=== PATIENT | female | born 1975 | race Caucasian/White ===

== ENCOUNTER 2017-06-21 15:31 | Emergency (ER) | payer OTHER ==
[2017-06-21 15:39] VITALS: BP 129/76; PULSE 100; TEMP 99; BMI 30.2
[2017-06-21] MEDS ORDERED: ALBUTEROL SO4 2.5/IPRATROPIUM 0.5 INH SOL 3 ML VIAL.NEB. NEB ONE ×2 (16:04→16:07)
--- NOTE | 2017-06-21 16:15 | PDOC ---
History of Present Illness - General Chief Complaint: Respiratory Stated Complaint: SOB, RIBS PAIN Time Seen by Provider: 06/21/17 15:48 History Source: Patient Exam Limitations: No Limitations - History of Present Illness Initial Comments: 06/21/17 16:09 Patient is a 41-year-old female, history of asthma, does not take any medications at home has not had exacerbation in many years. Presents with cough , wheezing, bilateral rib pain for three days. Cough is not productive. No fever, no chest pain. Allergies: PCN Medications: None Family History: Non-contributory Social History: Denies smoking, alcohol use, or IVDU Review of Systems GENERAL/CONSTITUTIONAL: No fever or chills. No weakness. No weight change. HEAD, EYES, EARS, NOSE AND THROAT: No change in vision. No ear pain or discharge. No sore throat. CARDIOVASCULAR: No chest pain or shortness of breath. RESPIRATORY: Cough, wheezing, rib pain coughing GASTROINTESTINAL: No nausea, vomiting, diarrhea or constipation. No rectal bleeding. GENITOURINARY: No dysuria, frequency, or change in urination. MUSCULOSKELETAL: No joint or muscle swelling or pain. No neck or back pain. SKIN : No rash or easy bruising. Physical Exam: GENERAL: The patient is awake, alert, and fully oriented, in no acute distress. EYES: Pupils equal, round and reactive to light, extraocular movements intact, sclera anicteric, conjunctiva clear. ENT: Ears normal, nares patent, oropharynx clear without exudates. Moist mucous membranes. No uvula deviation NECK: Normal range of motion, supple without lymphadenopathy, JVD, or masses. LUNGS: Breath sounds decreased at right base, clear to auscultation bilaterally. No wheezes, and no crackles. HEART: Regular rate and rhythm, normal S1 and S2 without murmur, rub or gallop. ABDOMEN: Soft, nontender, normoactive bowel sounds. No guarding, no rebound. No masses. No bruising or abrasions MUSCULOSKELETAL: Normal range of motion, no edema. No clubbing or cyanosis. No cords, erythema, or tenderness. No CVA Tenderness with fist. NEUROLOGICAL: Cranial nerves II through XII grossly intact. Normal speech, normal gait. SKIN: Warm, Dry, normal turgor, no rashes or lesions noted. Past History - Past Medical History Allergies/Adverse Reactions: Allergies Allergy/AdvReac Type Severity Reaction Status Date / Time Penicillins Allergy Swelling Verified 06/21/17 15:39 Home Medications: Ambulatory Orders Albuterol Sulfate Inhaler - [Ventolin HFA Inhaler -] 1 - 2 inh PO Q4H #1 inhaler 06/21/17 Azithromycin [Zithromax 250mg Tablets -] 250 mg PO UTDICT #6 tab 06/21/17 Asthma: Yes - Suicide/Smoking/Psychosocial Hx Smoking History: Current some day smoker Number of Cigarettes Smoked Daily: 4 Information on smoking cessation initiated: Yes 'Breaking Loose' booklet given: 06/21/17 Hx Alcohol Use: No Drug/Substance Use Hx: No Substance Use Type: None *Physical Exam - Vital Signs Last Vital Signs Temp Pulse Resp BP Pulse Ox 99.0 F 100 H 20 129/76 98 06/21/17 15:37 06/21/17 15:37 06/21/17 15:37 06/21/17 15:37 06/21/17 15:37 ED Treatment Course - RADIOLOGY Radiology Studies Ordered: Category Date Time Status CHEST PA & LAT [RAD] Stat Radiology 06/21/17 16:02 Ordered - Medications Given in the ED: ED Medications Discontinued Medications Generic Name Dose Route Start Last Admin Trade Name Freq PRN Reason Stop Dose Admin Albuterol/Ipratropium 1 amp 06/21/17 16:04 06/21/17 16:08 Duoneb - NEB 06/21/17 16:05 1 amp ONCE ONE Administration Medical Decision Making - Medical Decision Making 06/21/17 16:15 A/P: Patient here for evaluation of cough with bilateral rib pain only with coughing, there is no pain on palpation over musculature of chest, no chest pain , no fever. Patient decreased breath sounds to right Base. Plan: Combivent Urine Chest x-ray PA lateral 06/21/17 17:53 X-ray wet read is negative for acute cardiopulmonary disease. Patient with bronchitis Will discharge patient home on azithromycin and Motrin for pain, albuterol as needed I discussed the physical exam findings, ancillary test results and final diagnoses with the patient. I answered all of the patient's questions. The patient was satisfied with the care received and felt comfortable with the discharge plan and treatment plan. The patient will call to arrange follow-up and will return to the Emergency Department with any new, persistent or worsening symptoms. 06/21/17 17:59 *DC/Admit/Observation/Transfer Diagnosis at time of Disposition: Bronchitis - Discharge Dispostion Disposition: HOME Condition at time of disposition: Good Admit: No - Prescriptions Prescriptions: Albuterol Sulfate Inhaler - [Ventolin HFA Inhaler -] 1 - 2 inh PO Q4H #1 inhaler Azithromycin [Zithromax 250mg Tablets -] 250 mg PO UTDICT #6 tab - Patient Instructions Printed Discharge Instructions: DI for Acute Bronchitis Additional Instructions: Keep head of bed elevated 45 when sleeping Treatments every 4 hours as needed Cool air humidifier Antibiotics as ordered until completed Motrin for fever or pain Followup in the primary care doctor's office in 2 days for evaluation. If any respiratory distress, increased cough, inability to drink, increased wheezing please return immediately to emergency department.
== END 2017-06-21 18:01 | disposition home or self-care (01) ==
LOC: JERFT 15:31
PROC: 3E0F7GC Introduction of Other Therapeutic Substance into Respiratory Tract, Via Natural or Artificial Opening (ICD-10-PCS; principal; 2017-06-21)
DX: J40 Bronchitis, not specified as acute or chronic (principal)
CPT/HCPCS: 71020-TC; 84703; 94640; 99281-25

== ENCOUNTER 2018-12-25 03:02 | Inpatient (IN) | payer OTHER ==
[2018-12-25 03:16] VITALS: BMI 32.5
[2018-12-25] MEDS ORDERED: SODIUM CHLORIDE 1,000 ML IV STA (03:30)
[2018-12-25] MEDS ORDERED: ONDANSETRON 4 MG/2 ML VIAL IVPUSH ONE (03:30)
[2018-12-25] MEDS ORDERED: morphine SULFATE 4 MG/ML VIAL ONE (03:37)
[2018-12-25 04:19] LABS: BASO % 0.2 % (0-2.0); EOS % 0.6 % (0-4.5); HEMATOCRIT 31.9 % (32.4-45.2); MCH 33.3 pg (25.7-33.7); MCHC 34.4 g/dl (32.0-36.0); MEAN CELL VOLUME 96.6 fl (80-96); MEAN PLT VOLUME 7.6 fl (7.5-11.1); MONO % 5.2 % (3.8-10.2); PLATELET COUNT 247 K/MM3 (134-434); RDW 13.8 % (11.6-15.6); WHITE BLOOD COUNT 6.4 K/mm3 (4.0-10.0)
[2018-12-25 04:25] LABS: EPI CELLS 2.5 /HPF (0-5); URINE APPEARANCE CLEAR; URINE BACTERIA 86.4 /hpf (NEGATIVE); URINE BILIRUBIN 1+ (NEGATIVE); URINE CASTS 4 /hpf (0-8); URINE COLOR DK YELLOW; URINE GLUCOSE (UA) NEGATIVE (NEGATIVE); URINE KETONE NEGATIVE (NEGATIVE); URINE LEUK ESTERASE TRACE (NEGATIVE); URINE NITRITE POSITIVE (NEGATIVE); URINE PROTEIN NEGATIVE (NEGATIVE); URINE RBC 50 /hpf (0-4); URINE UROBILINOGEN 4.0 E.U/dl mg/dL (0.2-1.0); URINE WBC 4 /hpf (0-5)
--- NOTE | 2018-12-25 04:38 | PDOC ---
Attending Attestation - Resident Resident Name: Scott Park - ED Attending Attestation I have performed the following: I have examined & evaluated the patient, The case was reviewed & discussed with the resident, I agree w/resident's findings & plan, Exceptions are as noted - HPI HPI: 12/25/18 07:01 43F pmh of cholelithiasis scheduled for out patient f/u with surgery in December. Here with sudden onset RUQ px a/w n/v - Physicial Exam PE: 12/25/18 07:01 Agree with exam as documented by resident +TTP RUQ, no guarding, no rebound Skin color baseline per patient's daughter at bedside No scleral icterus - Medical Decision Making 12/25/18 07:02 Concern for cholecystitis, choledoco, less likely cholangitis bili 3.4, slight elevation in lfts CT confirming cholelithiasis Admit for eval ERCP
[2018-12-25 04:46] LABS: ALK PHOS 85 U/L (45-117); ANION GAP 9 MMOL/L (8-16); BILIRUBIN,TOTAL 3.4 mg/dL (0.2-1); BLOOD UREA NITROGEN 15 mg/dL (7-18); CALCIUM 8.5 mg/dL (8.5-10.1); CHLORIDE 107 mmol/L (98-107); CO2 25 mmol/L (21-32); CREATININE 0.8 mg/dL (0.55-1.3); GLUCOSE,RANDOM 136 mg/dL (74-106); LIPASE 127 U/L (73-393); POTASSIUM 3.6 mmol/L (3.5-5.1); SGOT/AST 136 U/L (15-37); SGPT/ALT 92 U/L (13-61); SODIUM 141 mmol/L (136-145); TOT PROT 7.4 g/dl (6.4-8.2)
--- NOTE | 2018-12-25 04:57 | PDOC ---
History of Present Illness - General Chief Complaint: Pain, Acute Stated Complaint: ABD PAIN Time Seen by Provider: 12/25/18 03:13 History Source: Patient Exam Limitations: No Limitations - History of Present Illness Initial Comments: 12/25/18 04:52 Patient is a 43F with history of cholelithiasis here today complaining of sudden onset RUQ pain. Patient states that she was previously diagnosed with gallstones in her home state of [place] and was due for an outpatient surgical eval in early december. Endorses vomiting and nausea, denies fevers and chills. Denies vaginal pain. LMP current. Denies diarrhea and constipation. No prior surgeries. Past History - Past Medical History Allergies/Adverse Reactions: Allergies Allergy/AdvReac Type Severity Reaction Status Date / Time Penicillins Allergy Swelling Verified 12/25/18 03:15 Home Medications: Ambulatory Orders Albuterol Sulfate Inhaler - [Ventolin HFA Inhaler -] 1 - 2 inh PO Q4H #1 inhaler 06/21/17 Asthma: Yes COPD: No - Reproductive History Is Patient Now?: No Therapeutic (s) & number: No - Immunization History Immunization Up to Date: Yes - Suicide/Smoking/Psychosocial Hx Smoking History: Never smoked Have you smoked in the past 12 months: No Number of Cigarettes Smoked Daily: 4 Information on smoking cessation initiated: No 'Breaking Loose' booklet given: 06/21/17 Hx Alcohol Use: No Drug/Substance Use Hx: No Substance Use Type: None Review of Systems - Review of Systems Able to Perform ROS?: Yes Comments:: 12/25/18 04:53 GENERAL/CONSTITUTIONAL: No fever or chills. No weakness. HEAD, EYES, EARS, NOSE AND THROAT: No change in vision. No ear pain or discharge. No sore throat. CARDIOVASCULAR: No chest pain or shortness of breath RESPIRATORY: No cough, wheezing, or hemoptysis. GASTROINTESTINAL: +nausea, +vomiting, no diarrhea or constipation. GENITOURINARY: No dysuria, frequency, or change in urination. MUSCULOSKELETAL: No joint or muscle swelling or pain. No neck or back pain. SKIN: No rash NEUROLOGIC: No headache, vertigo, loss of consciousness, or change in strength/ sensation. ALLERGIC/IMMUNOLOGIC: No hives or skin allergy. *Physical Exam - Vital Signs Last Vital Signs Temp Pulse Resp BP Pulse Ox 97.6 F 69 20 112/63 97 12/25/18 03:15 12/25/18 03:15 12/25/18 03:15 12/25/18 03:15 12/25/18 03:15 - Physical Exam Comments: 12/25/18 04:55 GENERAL: Awake, alert, and fully oriented, in no acute distress HEAD: No signs of trauma, normocephalic, atraumatic EYES: PERRLA, EOMI, sclera anicteric, conjunctiva clear ENT: Auricles normal inspection, hearing grossly normal, nares patent, oropharynx clear without exudates. Moist mucosa NECK: Normal ROM, supple, no lymphadenopathy, JVD, or masses LUNGS: No distress, speaks full sentences, clear to auscultation bilaterally HEART: Regular rate and rhythm, normal S1 and S2, no murmurs, rubs or gallops, peripheral pulses normal and equal bilaterally. ABDOMEN: Soft, +RUQ tenderness, no rebound EXTREMITIES: Normal inspection, Normal range of motion, no edema. No clubbing or cyanosis. NEUROLOGICAL: Cranial nerves II through XII grossly intact. Normal speech, no focal sensorimotor deficits SKIN: Warm, Dry, normal turgor, no rashes or lesions noted. ED Treatment Course - LABORATORY CBC & Chemistry Diagram: 12/25/18 03:31 12/25/18 03:31 - ADDITIONAL ORDERS Additional order review: Laboratory Results 12/25/18 12/25/18 03:31 03:31 Sodium 141 Potassium 3.6 Chloride 107 Carbon Dioxide 25 Anion Gap 9 BUN 15 Creatinine 0.8 Creat Clearance w eGFR 79.05 Random Glucose 136 H Calcium 8.5 Total Bilirubin 3.4 H AST 136 H ALT 92 H Alkaline Phosphatase 85 Total Protein 7.4 Albumin 4.0 Lipase 127 Urine HCG, Qual Negative 12/25/18 03:31 RBC 3.30 L MCV 96.6 H MCHC 34.4 RDW 13.8 MPV 7.6 Neutrophils % 83.0 H Lymphocytes % 11.0 Monocytes % 5.2 Eosinophils % 0.6 Basophils % 0.2 - RADIOLOGY Radiology Studies Ordered: Category Date Time Status ABDOMEN CT WITH CONTRAST* [CT] Stat CT Scan 12/25/18 03:42 Ordered - Medications Given in the ED: ED Medications Discontinued Medications Generic Name Dose Route Start Last Admin Trade Name Freq PRN Reason Stop Dose Admin Sodium Chloride 1,000 mls @ 1,000 mls/hr 12/25/18 03:30 12/25/18 03:34 Normal Saline - IV 12/25/18 04:29 1,000 mls/hr ASDIR STA Administration Ondansetron HCl 4 mg 12/25/18 03:30 12/25/18 03:34 Zofran Injection IVPUSH 12/25/18 03:31 4 mg ONCE ONE Administration Medical Decision Making - Medical Decision Making 12/25/18 04:55 Patient is 43F with history of cholelithiasis here today complaining of RUQ pain. Vitals normal and stable. POCUS shows cholethiasis, no gb wall thickening , no pericholecystic fluid, cbd not visualized. Given morphine, zofran, fluids. DDx includes, but is not limited to: cholecystitis, biliary colic, choledocholithiasis. US not available currently, will start with CT scan. 12/25/18 05:13 CBC normal. CMP shows Bili 3.3, mild elevations of AST/ALT, lipase normal. UA nitrite+, preg negative. Presuming diagnosis of choledocholithiasis at this time. PCN allergy, will give levaquin and flagyl for abx coverage. CT pending. 12/25/18 05:41 CT shows cholelithiasis, does not comment on CBD. US ordered. GI paged. Hospitalist paged. 12/25/18 05:46 Case d/w Dr Kendall, case discussed. 12/25/18 06:15 After levaquin completed, rash developed on patient. Given benadryl. No edema in throat or upper airway, lungs clear. Given benadryl. *DC/Admit/Observation/Transfer Diagnosis at time of Disposition: Choledocholithiasis - Discharge Dispostion Condition at time of disposition: Stable Decision to Admit order: Yes - Referrals - Patient Instructions - Post Discharge Activity
--- NOTE | 2018-12-25 07:14 | PDOC ---
*Physical Exam - Vital Signs Last Vital Signs Temp Pulse Resp BP Pulse Ox 97.6 F 98 H 18 124/75 98 12/25/18 03:15 12/25/18 06:33 12/25/18 06:33 12/25/18 06:33 12/25/18 06:33 <Abigail Ramsey - Last Filed: 12/25/18 08:56> - Vital Signs Last Vital Signs Temp Pulse Resp BP Pulse Ox 97.6 F 98 H 18 124/75 98 12/25/18 03:15 12/25/18 06:33 12/25/18 06:33 12/25/18 06:33 12/25/18 06:33 <AnthonyPark - Last Filed: 12/25/18 14:11> ED Treatment Course - LABORATORY CBC & Chemistry Diagram: 12/25/18 03:31 12/25/18 03:31 - ADDITIONAL ORDERS Additional order review: Laboratory Results 12/25/18 12/25/18 12/25/18 03:31 03:31 03:31 Sodium 141 Potassium 3.6 Chloride 107 Carbon Dioxide 25 Anion Gap 9 BUN 15 Creatinine 0.8 Creat Clearance w eGFR 79.05 Random Glucose 136 H Calcium 8.5 Total Bilirubin 3.4 H AST 136 H ALT 92 H Alkaline Phosphatase 85 Total Protein 7.4 Albumin 4.0 Lipase 127 Urine Color Dk yellow Urine Appearance Clear Urine pH 6.0 Ur Specific [place] 1.024 Urine Protein Negative Urine Glucose (UA) Negative Urine Ketones Negative Urine Blood 3+ H Urine Nitrite Positive H Urine Bilirubin 1+ H Urine Urobilinogen 4.0 e.u/dl H Ur Leukocyte Esterase Trace Urine WBC (Auto) 4 Urine RBC (Auto) 50 Urine Casts (Auto) 4 U Epithel Cells (Auto) 2.5 Urine Bacteria (Auto) 86.4 Urine HCG, Qual Negative 12/25/18 03:31 RBC 3.30 L MCV 96.6 H MCHC 34.4 RDW 13.8 MPV 7.6 Neutrophils % 83.0 H Lymphocytes % 11.0 Monocytes % 5.2 Eosinophils % 0.6 Basophils % 0.2 - Medications Given in the ED: ED Medications Discontinued Medications Generic Name Dose Route Start Last Admin Trade Name Freq PRN Reason Stop Dose Admin Diphenhydramine HCl 50 mg 12/25/18 06:15 12/25/18 06:18 Benadryl Injection - IVPUSH 12/25/18 06:16 50 mg ONCE ONE Administration Sodium Chloride 1,000 mls @ 1,000 mls/hr 12/25/18 03:30 12/25/18 03:34 Normal Saline - IV 12/25/18 04:29 1,000 mls/hr ASDIR STA Administration Metronidazole 500 mg in 100 mls @ 100 mls/hr 12/25/18 05:01 12/25/18 05:20 Flagyl 500mg Premixed Ivpb - IVPB 12/25/18 06:00 100 mls/hr ONCE ONE Administration Levofloxacin 750 mg in 150 mls @ 100 mls/hr 12/25/18 05:01 12/25/18 05:45 Levaquin 750 Mg Premixed Ivpb - IVPB 12/25/18 06:30 100 mls/hr ONCE ONE Administration Protocol Ondansetron HCl 4 mg 12/25/18 03:30 12/25/18 03:34 Zofran Injection IVPUSH 12/25/18 03:31 4 mg ONCE ONE Administration <Abigail Ramsey - Last Filed: 12/25/18 08:56> - LABORATORY CBC & Chemistry Diagram: 12/25/18 03:31 12/25/18 03:31 - ADDITIONAL ORDERS Additional order review: Laboratory Results 12/25/18 12/25/18 12/25/18 03:31 03:31 03:31 Sodium 141 Potassium 3.6 Chloride 107 Carbon Dioxide 25 Anion Gap 9 BUN 15 Creatinine 0.8 Creat Clearance w eGFR 79.05 Random Glucose 136 H Calcium 8.5 Total Bilirubin 3.4 H AST 136 H ALT 92 H Alkaline Phosphatase 85 Total Protein 7.4 Albumin 4.0 Lipase 127 Urine Color Dk yellow Urine Appearance Clear Urine pH 6.0 Ur Specific [place] 1.024 Urine Protein Negative Urine Glucose (UA) Negative Urine Ketones Negative Urine Blood 3+ H Urine Nitrite Positive H Urine Bilirubin 1+ H Urine Urobilinogen 4.0 e.u/dl H Ur Leukocyte Esterase Trace Urine WBC (Auto) 4 Urine RBC (Auto) 50 Urine Casts (Auto) 4 U Epithel Cells (Auto) 2.5 Urine Bacteria (Auto) 86.4 Urine HCG, Qual Negative 12/25/18 03:31 RBC 3.30 L MCV 96.6 H MCHC 34.4 RDW 13.8 MPV 7.6 Neutrophils % 83.0 H Lymphocytes % 11.0 Monocytes % 5.2 Eosinophils % 0.6 Basophils % 0.2 - Medications Given in the ED: ED Medications Discontinued Medications Generic Name Dose Route Start Last Admin Trade Name Stephanie PRN Reason Stop Dose Admin Diphenhydramine HCl 50 mg 12/25/18 06:15 12/25/18 06:18 Benadryl Injection - IVPUSH 12/25/18 06:16 50 mg ONCE ONE Administration Sodium Chloride 1,000 mls @ 1,000 mls/hr 12/25/18 03:30 12/25/18 03:34 Normal Saline - IV 12/25/18 04:29 1,000 mls/hr ASDIR STA Administration Metronidazole 500 mg in 100 mls @ 100 mls/hr 12/25/18 05:01 12/25/18 05:20 Flagyl 500mg Premixed Ivpb - IVPB 12/25/18 06:00 100 mls/hr ONCE ONE Administration Levofloxacin 750 mg in 150 mls @ 100 mls/hr 12/25/18 05:01 12/25/18 05:45 Levaquin 750 Mg Premixed Ivpb - IVPB 12/25/18 06:30 100 mls/hr ONCE ONE Administration Protocol Ondansetron HCl 4 mg 12/25/18 03:30 12/25/18 03:34 Zofran Injection IVPUSH 12/25/18 03:31 4 mg ONCE ONE Administration <Park Cruz - Last Filed: 12/25/18 14:11> Medical Decision Making - Medical Decision Making 12/25/18 07:11 Carine Butcher is a 43yo woman with a PMH of cholelithiasis who presented overnight with RUQ pain. ED course notable for - POCUS w/ cholelithiasis, no sign of cholecystitis. - Labs with tbili 3.3, mildly elevated LFTs, normal lipase. - CT not diagnostic, US pending. - Case was discussed with Dr Kendall. - Given levaquin, developed rash. Given benadryl. 12/25/18 08:45 - US completed, reviewed. Multiple gallstones noted. Normal wall thickness, no duct dilation. Radiology read pending - Spoke to Dr Fajardo; pt will be accepted to medicine service for further management 12/25/18 08:58 - US reviewed by radiology; notes multiple non-mobile stones at gallbladder neck Discussed with Dr Ramsey. Park Cruz PGY1 <Park Cruz - Last Filed: 12/25/18 14:11> *DC/Admit/Observation/Transfer - Discharge Dispostion Decision to Admit order: Yes Decision to Admit order Date/Time: 12/25/18 08:56 <Abigail Ramsey - Last Filed: 12/25/18 08:56> - Discharge Dispostion Decision to Admit order: Yes <Park Cruz - Last Filed: 12/25/18 14:11> Diagnosis at time of Disposition: Choledocholithiasis - Discharge Dispostion Condition at time of disposition: Stable
[2018-12-25] MEDS ORDERED: MORPHINE SULFATE 2 MG/ML VIAL IVPUSH PRN (08:45)
--- NOTE | 2018-12-25 08:59 | HP ---
Admitting History and Physical - Admission Chief Complaint: abdominal pain History of Present Illness: 43 yo F with history of gallstones presents with one day history of abdominal pain. She describes intermittent non-radiating 10/10 RUQ pain. Pain lasted approx. 1 min and resolved. This occured several times which prompted trip to ER. No alleviating or aggravating factors. No fever or chills. She has been seen in [place] for similar episodes and was scheduled for Cholecystectomy but was not done. She denies CP, HERNANDEZ, SOB,abdominal pain, nausea or vomiting. In ER CT abdomen was done with contrast and showed distended gallbladder with stones. US of abdomen showed multiple non mobile stones near the neck with no evidence of cholecystitis. Labs in ER showed normal white count. Elevated liver enzymes with AST: 136 ALT: 92 ALP: 85 TB: 3.4 Alb: 4.0. She recieved a dose of Levaquin and Metronidazole. She had adverse reaction to Levaquin with hives and was given Benadryl. History Source: Patient Limitations to Obtaining History: No Limitations - Past Medical History Pulmonary: Yes: Asthma Hepatobiliary: Yes: Choledocholithiasis ...: No - Smoking History Smoking history: Former smoker Have you smoked in the past 12 months: No Aproximately how many cigarettes per day: 4 - Alcohol/Substance Use Hx Alcohol Use: No - Social History Usual Living Arrangement: Yes: Alone ADL: Independent History of Recent Travel: No Home Medications - Allergies Allergies/Adverse Reactions: Allergies Allergy/AdvReac Type Severity Reaction Status Date / Time Penicillins Allergy Swelling Verified 12/25/18 03:15 levofloxacin [From Levaquin] AdvReac Mild Itching Verified 12/25/18 08:19 - Home Medications Home Medications: Ambulatory Orders Albuterol Sulfate Inhaler - [Ventolin HFA Inhaler -] 1 - 2 inh PO Q4H #1 inhaler 06/21/17 Family Disease History - Family Disease History Family Disease History: Diabetes: Father, Heart Disease: Father, Mother ( of [place] @59) Review of Systems - Review of Systems Constitutional: denies: Chills, Diaphoresis, Fever Cardiovascular: denies: Chest Pain, Edema, Palpitations, Shortness of Breath Respiratory: denies: Cough, Wheezing Gastrointestinal: reports: Abdominal Pain Musculoskeletal: denies: Back Pain Neurological: denies: Dizziness, Headache Physical Examination Vital Signs: Vital Signs Temperature 97.6 F 12/25/18 03:15 Pulse Rate 98 H 12/25/18 06:33 Respiratory Rate 18 12/25/18 06:33 Blood Pressure 124/75 12/25/18 06:33 O2 Sat by Pulse Oximetry (%) 98 12/25/18 06:33 Constitutional: Yes: Well Nourished, No Distress, Calm Eyes: Yes: EOM Intact, PERRL, Sclera Icterus HENT: Yes: Atraumatic, Normocephalic Neck: Yes: Supple Cardiovascular: Yes: Regular Rate and Rhythm, S1, S2. No: Murmur Respiratory: Yes: Regular, CTA Bilaterally Gastrointestinal: Yes: Normal Bowel Sounds, Soft, Abdomen, Obese, Tenderness ( RUQ - duncan(-)) Extremities: No: Calf Tenderness, Cyanosis Edema: Yes Edema: LLE: Trace, RLE: Trace Peripheral Pulses WNL: Yes Peripheral Pulses: Left Doralis Pedis: 2+, Right Dorsalis Pedis: 2+ Neurological: Yes: Alert, Oriented ...Motor Strength: WNL Psychiatric: Yes: Alert, Oriented Labs: CBC, BMP 12/25/18 03:31 12/25/18 03:31 Imaging - Results Cat Scan: Report Reviewed (Gallbladder: Distended fluid-filled gallbladder with stones. Correlate with ultrasound and if nnecessary with additional imaging. Biliary tree: Negative. Spleen: Splenomegaly. Pancreas: Negative. Kidneys: Tiny hypodensity left kidney too small to characterize. Pelvis: Free fluid in the cul-de-sac. Normal-appearing gynecologic structures for age. Bowel: Retention of stool. Normal appendix Other: Small hiatal hernia. Small inguinal hernia with fat. Impression: Cholelithiasis. Splenomegaly. Free fluid in the cul-de-sac probably physiologic in a patient of this age.), Image Reviewed Ultrasound: Report Reviewed (Hepatomegaly with a homogeneous. Multiple nonmobile gallstones in and adjacent to the region of the gallbladder neck without sonographic evidence of acute cholecystitis), Image Reviewed Problem List - Problems (1) Choledocholithiasis Assessment/Plan: * Admit to med-surg * surgery consult * MRCP * GI consult for possible ERCP pending MRCP * IVFwith NS @ 125ml/hr * Zofran for nausea. * Pain control with morphine 2mg Q6H Visit type - Emergency Visit Emergency Visit: Yes Care time: The patient presented to the Emergency Department on the above date and was hospitalized for further evaluation of their emergent condition. - New Patient This patient is new to me today: Yes Date on this admission: 12/25/18 - Critical Care Critical Care patient: No
[2018-12-25] MEDS ORDERED: ALBUTEROL SO4 8 GM HFA INHALER IH SCH (09:00)
[2018-12-25] MEDS ORDERED: ALBUTEROL SO4 8 GM HFA INHALER IH PRN (09:10)
--- NOTE | 2018-12-25 09:13 | CONSULT ---
Consult Consult Specialty:: General Surgery Reason for Consultation:: choledocholithiasis - History of Present Illness Chief Complaint: abdominal pain History of Present Illness: 43 yo female PMH obesity, gallstones presents with one day history of abdominal pain. She describes intermittent non-radiating 10/10 RUQ pain. Pain lasted approx. 1 min and resolved. This occured several times which prompted trip to ER. No alleviating or aggravating factors. No fever or chills. She has been seen in [place] for similar episodes and was scheduled for Cholecystectomy but was not done. She denies CP, HERNANDEZ, SOB,abdominal pain, nausea or vomiting. we were called to assess. - History Source History Provided By: Patient, Medical Record Limitations to Obtaining History: No Limitations - Past Medical History Hepatobiliary: Yes: Choledocholithiasis ...: No - Past Surgical History Past Surgical History: Yes: None - Alcohol/Substance Use Hx Alcohol Use: No - Smoking History Smoking history: Never smoked Have you smoked in the past 12 months: No Aproximately how many cigarettes per day: 4 - Social History Place of : Other History of Recent Travel: No Home Medications - Allergies Allergies/Adverse Reactions: Allergies Allergy/AdvReac Type Severity Reaction Status Date / Time Penicillins Allergy Swelling Verified 12/25/18 03:15 levofloxacin [From Levaquin] AdvReac Mild Itching Verified 12/25/18 08:19 - Home Medications Home Medications: Ambulatory Orders Albuterol Sulfate Inhaler - [Ventolin HFA Inhaler -] 1 - 2 inh PO Q4H #1 inhaler 06/21/17 Review of Systems - Review of Systems Constitutional: denies: Chills, Fever Eyes: denies: Blind Spots, Recent Change in Vision HENT: denies: Difficult Swallowing, Mouth Swelling Neck: denies: Decreased ROM, Pain on Movement Cardiovascular: denies: Chest Pain, Palpitations Respiratory: denies: Cough, SOB Gastrointestinal: reports: Abdominal Pain, Indigestion. denies: Constipation, Diarrhea Genitourinary: denies: Discharge, Dysuria Breasts: reports: No Symptoms Reported. denies: Pain Musculoskeletal: denies: Muscle Pain, Muscle Cramps Integumentary: denies: Pallor, Pruritis Neurological: denies: Seizure, Syncope Endocrine: denies: Unexplained Weight Gain, Unexplained Weight Loss Hematology/Lymphatic: denies: Easily Bruised, Excessive Bleeding Psychiatric: denies: Anxiety, Depression Physical Exam Vital Signs: Vital Signs Temperature 97.6 F 12/25/18 03:15 Pulse Rate 98 H 12/25/18 06:33 Respiratory Rate 18 12/25/18 06:33 Blood Pressure 124/75 12/25/18 06:33 O2 Sat by Pulse Oximetry (%) 98 12/25/18 06:33 Vital Signs Period Temp Pulse Resp BP Sys/Zhong Pulse Ox Last 24 Hr 97.6 F 69-98 18-20 112-124/63-75 97-98 Constitutional: Yes: Well Nourished, No Distress, Calm, Obese Eyes: Yes: Conjunctiva Clear, EOM Intact HENT: Yes: Atraumatic, Normocephalic, Other (no teeth) Neck: Yes: Supple, Trachea Midline Cardiovascular: Yes: Regular Rate and Rhythm, S1, S2 Respiratory: Yes: Regular, CTA Bilaterally Gastrointestinal: Yes: Normal Bowel Sounds, Soft, Abdomen, Obese, Tenderness ( mild in RUQ, negative murphys). No: Distention, Palpable Mass, Pulsatile Mass, Tenderness, Epigastrium, Tenderness, Rebound ...Rectal Exam: Yes: Deferred Renal/: No: CVA Tenderness - Left, CVA Tenderness - Right Breast(s): No: Discharge from Nipple, Nipple Inversion Musculoskeletal: No: Muscle Pain, Muscle Weakness Extremities: No: Cool, Cyanosis Edema: No Peripheral Pulses WNL: Yes Integumentary: No: Jaundice, Tattoos Neurological: Yes: Alert, Oriented Psychiatric: Yes: Alert, Oriented Labs: CBC, BMP 12/25/18 03:31 12/25/18 03:31 Imaging - Results Ultrasound: Report Reviewed, Image Reviewed (multiple stones in GB neck) Problem List - Problems (1) Calculus of gallbladder and bile duct w/cholecystitis w/o obstruction Assessment/Plan: 43yo female with choledocholithiasis, agree with GI paln for ERCP and cholecystetcomy this admission NPO and IVF hydration empiric IV antibiotics adequat analagesia Laparoscopic cholecystectomy, possible open cholecystetcomy on Friday12/28/2018 Discussed with patient risks, benefits and alternatives of laparoscopic possible open cholecystectomy, including but not limited to bleeding, infection , injury to adjacent structures, leak or injury, intraabdominal abscess, incisional hernia, need for further procedures, ; alternatives include antibiotics, delayed or no surgery - risks of this include failure of nonoperative therapy, perforation, sepsis, recurrence, . Patient desires to proceed with operation - will take to OR for above. Informed consent signed for same. Thank you for the opportunity to participate in the care of this patient. Code(s): K80.60 - CALCULUS OF GB AND BILE DUCT W CHOLECYST, UNSP, W/O OBST Qualifiers: Cholecystitis acuity: acute and chronic Qualified Code(s): K80.66 - Calculus of gallbladder and bile duct with acute and chronic cholecystitis without obstruction (2) Choledocholithiasis Code(s): K80.50 - CALCULUS OF BILE DUCT W/O CHOLANGITIS OR CHOLECYST W/O OBST (3) Obesity (BMI 30.0-34.9) Code(s): E66.9 - OBESITY, UNSPECIFIED (4) Abdominal pain in female patient Code(s): R10.9 - UNSPECIFIED ABDOMINAL PAIN
[2018-12-25] MEDS ORDERED: ENOXAPARIN NA (PORCINE) 40 MG/0.4 ML DISP.SYRIN SQ SCH (10:00)
--- NOTE | 2018-12-25 10:22 | EKG ---
Test Reason : Blood Pressure : / mmHG Vent. Rate : 074 BPM Atrial Rate : 074 BPM P-R Int : 144 ms QRS Dur : 092 ms QT Int : 408 ms P-R-T Axes : 040 060 038 degrees QTc Int : 452 ms NORMAL SINUS RHYTHM NORMAL ECG NO PREVIOUS ECGS AVAILABLE Confirmed by JUAN ELKINS MD ([id number]) on 12/25/2018 10:21:55 AM Referred By: Confirmed By:JUAN ELKINS MD
[2018-12-25 11:22] LABS: INR 1.16 (0.83-1.09); PROTHROMBIN TIME (PATIENT) 13.7 SEC (9.7-13.0)
[2018-12-25 11:25] LABS: ACTIVATED PTT 45.8 SECONDS (25.2-36.5)
--- NOTE | 2018-12-25 11:28 | CON.GI ---
Consult Consult Specialty:: GI Referred by:: Hospitalist Service Reason for Consultation:: Abdominal pain - History of Present Illness Chief Complaint: Abdominal pain History of Present Illness: 43F from [place] visiting family admitted for evaluation of RUQ / epigastric abdominal pain and nausea. She states that the pain was very similar to the episodes of "gallbladder pain" that she has been evaluated for in [place] over the past year. She describes multiple ER visits in [place] for this type of pain, so many that "she lost count". She had "insurance issues and never had her gallbladder taken out", and was given "two pills to take if the pain recurred". the pain started last night during dinner. It was sharp, severe, prevenitng her from finishing her meal and promprting her ER evaluation. In the ER, triage vitals revealed her to be afebrile and normotensive. She denied fevers/chills at home. Initial WBC was normal. She had liver chemistries revealing AST: 136 ALT: 92 ALP: 85 TB: 3.4 Alb: 4.0. Abdominal US revealed gallbladder with multiple intraluminal stones without pericholecystic fluid or wall thickening. The biliary tract was non-dilated. CT scan of the abdomen with contrast revealed a distended fluid filled GB with stones and unremarkable biliary tract. Lipase was normal. She states that when she arrived in the ER, physical exam at that time did cause her to have pain in the RUQ. She denies known history of liver disease, IVDU or known infection with viral hepatitides. She has never had an upper endoscopy or colonoscopy. She currently denies abdominal pain. There is no family history of colorectal cancer or other GI malignancy. - History Source History Provided By: Patient, Family Member (Oldest daughter present at bedside) - Past Medical History Pulmonary: Yes: Asthma Hepatobiliary: Yes: Cholelithiasis (with, by description, multiple episodes of biliary colic) ...: No - Past Surgical History Past Surgical History: Yes: None - Alcohol/Substance Use Hx Alcohol Use: Yes (occasional: had a drink last night) - Smoking History Smoking history: Never smoked Have you smoked in the past 12 months: No Aproximately how many cigarettes per day: 4 - Social History Usual Living Arrangement: Alone ADL: Independent Occupation: Stay at home mother Place of : [facility] History of Recent Travel: No Home Medications - Allergies Allergies/Adverse Reactions: Allergies Allergy/AdvReac Type Severity Reaction Status Date / Time Penicillins Allergy Swelling Verified 12/25/18 03:15 levofloxacin [From Levaquin] AdvReac Mild Itching Verified 12/25/18 08:19 - Home Medications Home Medications: Ambulatory Orders Albuterol Sulfate Inhaler - [Ventolin HFA Inhaler -] 1 - 2 inh PO Q4H #1 inhaler 06/21/17 Family Disease History - Family Disease History Family Disease History: Other: Father (alive: healthy), Mother (: 59: [place] ), Sister (2, healthy), Son (5 sons, healthy), Daughter (3, healthy) Other Family History: No clear family history of colorectal cancer or other GI maligancy. Had a maternal aunt with an unknown cancer Review of Systems - Review of Systems Constitutional: denies: Chills, Fever, Unintentional Wgt. Loss Cardiovascular: denies: Chest Pain Respiratory: denies: Cough, SOB Gastrointestinal: reports: Abdominal Pain, Indigestion, Nausea. denies: Constipation, Diarrhea, Melena, Rectal Bleeding, Vomiting Physical Exam-GI Vital Signs: Vital Signs Temperature 98.8 F Oral 12/25/18 1100 Pulse Rate 73 12/25/18 1100 Respiratory Rate 15 12/25/18 1100 Blood Pressure 115/55 12/25/18 1100 O2 Sat by Pulse Oximetry (%) 95% on RA 12/25/18 1100 Constitutional: Yes: Calm Eyes: Yes: Sclera Icterus Cardiovascular: Yes: Regular Rate and Rhythm. No: Murmur Respiratory: Yes: CTA Bilaterally Gastrointestinal Inspection: No: Scars ...Auscultate: Yes: Normoactive Bowel Sounds ...Palpate: Yes: Soft, Tenderness (Mild TTP RUQ, negative duncan's). No: Hepatomegaly, Splenomegaly ...Percussion: No: Tympanitic Edema: Yes Edema: LLE: Trace, RLE: Trace Neurological: Yes: Alert Labs: CBC, BMP 12/25/18 03:31 12/25/18 03:31 INR, PTT INR 1.16 (0.83-1.09) H 12/25/18 10:58 Hepatic Panel Total Bilirubin 2.8 mg/dL (0.2-1) H 12/25/18 10:58 Direct Bilirubin 0.6 mg/dL (0.0-0.2) H 12/25/18 10:58 AST 87 U/L (15-37) H 12/25/18 10:58 ALT 105 U/L (13-61) H 12/25/18 10:58 Alkaline Phosphatase 87 U/L (45-117) 12/25/18 10:58 Albumin 3.9 g/dl (3.4-5.0) 12/25/18 10:58 Laboratory Tests 12/25/18 03:31 Total Bilirubin 3.4 H AST 136 H ALT 92 H Alkaline Phosphatase 85 Imaging - Results Cat Scan: Report Reviewed, Image Reviewed Ultrasound: Report Reviewed Problem List - Problems (1) Biliary colic Assessment/Plan: With improving liver chemistries, I question if she experienced passage of stone /sludge as well. Biliary trace not dilated on admission imaging. Discussed with patient. Explained ERCP as test to exclude retained biliary tract stone. Discussed potential risks of the procedure like but not limited to bleeding, perforation requiring surgery to repair, infection, sedation medication effects , pancreatitis (occurring in 5-10% of cases) all of which copuld be potentially life threatening. She has agreed to the procedure if it was felt to be clinically necessary. Discussed case with Dr. Sami Sanchez, biliary endoscopist. For now: Given improving LFT's with persistent bilirubin elevatio, however, will proceed with MRCP first to exclude alternate pathology such as gallbladder extrinsic compression of biliary tract and further assess CBD Keep NPO for now Type and screen, coags ordered Indocin suppository ordered to be given production or plant engineer to ERCP IV Abx coverage: Placed ID consult given thatMs. Butchre carries a history of penicillin allergy and given current reaction to Levaquin. Spoke with Dr. Wilson. Dr. Dawkins from surgery has evaluated the patient Will follow with you Code(s): K80.50 - CALCULUS OF BILE DUCT W/O CHOLANGITIS OR CHOLECYST W/O OBST
[2018-12-25 11:36] LABS: ALBUMIN 3.9 g/dl (3.4-5.0); BILIRUBIN,DIRECT 0.6 mg/dL (0.0-0.2); BILIRUBIN,TOTAL 2.8 mg/dL (0.2-1); TOT PROT 7.2 g/dl (6.4-8.2)
--- NOTE | 2018-12-25 12:40 | PN ---
Teaching Attending Note Name of Resident: Ernesto Fajardo ATTENDING PHYSICIAN STATEMENT I saw and evaluated the patient. I reviewed the resident's note and discussed the case with the resident. I agree with the resident's findings and plan as documented. SUBJECTIVE: Patient is a 43yo female visiting her sister ,she is from [place], admitted for evaluation of RUQ / epigastric abdominal pain and nausea. Patient had similar episodes in [place] with multiple ER. visits for having similar pain as today. OBJECTIVE: Vital Signs Temperature 98.0 F 12/25/18 08:45 Pulse Rate 75 12/25/18 08:45 Respiratory Rate 15 12/25/18 08:45 Blood Pressure 104/70 12/25/18 08:45 O2 Sat by Pulse Oximetry (%) 97 12/25/18 08:45 GENERAL: The patient is awake, alert, and fully oriented, in no acute distress. HEAD: Normal with no signs of trauma. EYES: PERRL, extraocular movements intact, sclera anicteric, conjunctiva clear. ENT: Ears normal, oropharynx clear without exudates, moist mucous membranes. NECK: Trachea midline, full range of motion, supple. LUNGS: Breath sounds equal, clear to auscultation bilaterally, no wheezes, no crackles, no accessory muscle use. HEART: Regular rate and rhythm, S1, S2 without murmur, rub or gallop. ABDOMEN: Soft, NT, ND, normoactive bowel sounds, no guarding, no rebound, no hepatosplenomegaly, no masses. EXTREMITIES: 2+ pulses, warm, well-perfused, no edema. NEUROLOGICAL: Cranial nerves II through XII grossly intact. Normal speech, gait not observed. PSYCH: Normal mood, normal affect. SKIN: Warm, dry, normal turgor, no rashes or lesions noted CBCD WBC 6.4 K/mm3 (4.0-10.0) 12/25/18 03:31 RBC 3.30 M/mm3 (3.60-5.2) L 12/25/18 03:31 Hgb 11.0 GM/dL (10.7-15.3) 12/25/18 03:31 Hct 31.9 % (32.4-45.2) L 12/25/18 03:31 MCV 96.6 fl (80-96) H 12/25/18 03:31 MCHC 34.4 g/dl (32.0-36.0) 12/25/18 03:31 RDW 13.8 % (11.6-15.6) 12/25/18 03:31 Plt Count 247 K/MM3 (134-434) 12/25/18 03:31 MPV 7.6 fl (7.5-11.1) 12/25/18 03:31 CMP Sodium 141 mmol/L (136-145) 12/25/18 03:31 Potassium 3.6 mmol/L (3.5-5.1) 12/25/18 03:31 Chloride 107 mmol/L (98-107) 12/25/18 03:31 Carbon Dioxide 25 mmol/L (21-32) 12/25/18 03:31 Anion Gap 9 MMOL/L (8-16) 12/25/18 03:31 BUN 15 mg/dL (7-18) 12/25/18 03:31 Creatinine 0.8 mg/dL (0.55-1.3) 12/25/18 03:31 Creat Clearance w eGFR 79.05 (>60) 12/25/18 03:31 Random Glucose 136 mg/dL (74-106) H 12/25/18 03:31 Calcium 8.5 mg/dL (8.5-10.1) 12/25/18 03:31 Total Bilirubin 2.8 mg/dL (0.2-1) H 12/25/18 10:58 AST 87 U/L (15-37) H 12/25/18 10:58 ALT 105 U/L (13-61) H 12/25/18 10:58 Alkaline Phosphatase 87 U/L (45-117) 12/25/18 10:58 Total Protein 7.2 g/dl (6.4-8.2) 12/25/18 10:58 Albumin 3.9 g/dl (3.4-5.0) 12/25/18 10:58 Current Medications Generic Name Dose Route Start Last Admin Trade Name Freq PRN Reason Stop Dose Admin Albuterol Sulfate 2 puff 12/25/18 09:10 Ventolin Hfa Inhaler - IH Q4H PRN SHORT OF BREATH/WHEEZING Indomethacin 50 mg 12/25/18 11:50 Indocin Suppository - MN 12/25/18 11:51 ONCE ONE Morphine Sulfate 2 mg 12/25/18 08:45 Morphine Sulfate IVPUSH Q4H PRN PAIN LEVEL 7 - 10 Ondansetron HCl 4 mg 12/25/18 08:52 Zofran Injection IVPUSH Q6H PRN NAUSEA Home Medications Medication Instructions Recorded Albuterol Sulfate Inhaler - 1 - 2 inh PO Q4H #1 inhaler 06/21/17 [Ventolin HFA Inhaler -] US: of RUQ: Homogenous Hepatomegaly, multiple nonmobile gallstones in and adjacent to the region of the gallbladder neck without evidence of acute cholecystitis. ASSESSMENT AND PLAN: Patient is a 43yo female visiting family from [place], admitted for evaluation of RUQ / epigastric abdominal pain and nausea. # Multiple non-mobile gallstones adjacent to the region of the gallbladder. NPO , GI on the case, for MRCP and possible ERCP, as per ID patient if needing antibiotic, can give Tygacil 100mg x 1 dose, followed by 50mg IV bid, and to give a dose of 320mg gentamicin. # Acute transaminitis due to gallstones, IVF, no fever or chills, antibiotic prior to ERCP # Obesity with BMI of 32kg # Hepatomegaly ID/GI/surgery on the case. DCT px: SCds for now
--- NOTE | 2018-12-25 13:29 | PN ---
Progress Note (short form) - Note Progress Note: ID consult dictated d/w GI D/w hospitalist 43 yo female with acute RUQ pain last night now resolved no fevers or chills prior episodes in [place] takes medicine for gallstones - doesn't know the name visiting her sister here in [place]- lives in [facility] penicillin allergy- swells up has 8 children- normal deliveries got levaquin at 6 am in ED and developed itching at end of administration got flagyl as well asked to see for antibiotic reccd-no sign of cholycystitis, concern for choledocholithiasis blood cultures going for MRCP if plans for ERCP would give tygacil 100 mg once and then 50 q12h and gentamicin 240 mg iv times one would need to give IVF and follow renal function Problem List - Problems (1) Choledocholithiasis Code(s): K80.50 - CALCULUS OF BILE DUCT W/O CHOLANGITIS OR CHOLECYST W/O OBST (2) Calculus of gallbladder and bile duct w/cholecystitis w/o obstruction Code(s): K80.60 - CALCULUS OF GB AND BILE DUCT W CHOLECYST, UNSP, W/O OBST Qualifiers: Cholecystitis acuity: acute and chronic Qualified Code(s): K80.66 - Calculus of gallbladder and bile duct with acute and chronic cholecystitis without obstruction (3) Allergy to multiple antibiotics Code(s): Z88.1 - ALLERGY STATUS TO OTHER ANTIBIOTIC AGENTS STATUS
[2018-12-25] MEDS ORDERED: DEXTROSE 5%-NORMAL SALINE 1,000 ML IV SCH (13:45)
[2018-12-25] MEDS ORDERED: D5-1/2NS+10 MEQ KCL - 10 MEQ/1,000 ML INFUS.BAG IV SCH (14:15)
[2018-12-25] MEDS ORDERED: INDOMETHACIN 50 MG RECTAL SUPPOSITORY PR ONE ×2 (17:00→17:15)
[2018-12-25] MEDS ORDERED: GENTAMICIN IVPB ONE (18:00)
[2018-12-25] MEDS ORDERED: SODIUM CHLORIDE IVPB ONE (18:00)
[2018-12-25] MEDS ORDERED: TIGECYCLINE 100 MG in DEXTROSE 5%-WATER - 100 ML IVPB ONE (18:00)
[2018-12-25] MEDS ORDERED: LACTATED RINGERS SOLUTION 1,000 ML/1,000 ML INFUS.BAG IV SCH (18:15)
--- NOTE | 2018-12-25 18:23 | PN ---
Progress Note (short form) - Note Progress Note: GI Procedure Note: ERCP yielded 2 CBD stones after sphincterotomy was made. No stent required. Dr Cabrera will be covering this weekend.
[2018-12-25] MEDS ORDERED: ONDANSETRON 4 MG/2 ML VIAL ONE (18:31)
[2018-12-25] MEDS: ONDANSETRON 4 MG/2 ML VIAL IVPUSH PRN (18:33)
[2018-12-25] MEDS: LACTATED RINGERS SOLUTION 1,000 ML/1,000 ML INFUS.BAG IV SCH (19:25)
--- NOTE | 2018-12-25 20:07 | CONS ---
DATE OF CONSULTATION: DATE OF DICTATION: 12/25/2018 REQUESTED BY: Hospitalist Service This is a 43-year-old woman who developed acute right upper quadrant pain last night which has now resolved. She had had prior episodes while in [place]. She is taking medicine for gallstones but does not know its name. She lives in [place] but is here visiting her sister in [place]. She has had no fevers or chills. No prior surgeries. She presented to the hospital with these complaints and was noted to have cholelithiasis with a concern for choledocholithiasis. 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 She has 8 children who were all normal deliveries. PAST MEDICAL HISTORY: Notable for asthma and cholelithiasis. PAST SURGICAL HISTORY: None. SOCIAL HISTORY: She had a drink yesterday but she rarely drinks. No history of cigarette or substance use. FAMILY HISTORY: Notable for a mother who from an [place]. ALLERGIES: PENICILLIN (caused swelling and throat closing yesterday); LEVAQUIN (when she received LEVAQUIN, she had itching all over). REVIEW OF SYSTEMS: As per HPI. She currently has no fever or chills. She has no abdominal pain. PHYSICAL EXAMINATION: VITALS: Temperature is 98.5, pulse is 73, blood pressure 115/55, respiratory rate 15, oxygen saturation 97% on room air. HEENT: Normocephalic. Eyes are anicteric. NECK: Supple. LUNGS: Clear to auscultation. HEART: Regular rate and rhythm. ABDOMEN: Soft, nontender. EXTREMITIES: No edema. LABS: White count is 6.4, hemoglobin is 11, platelets of 247,000, INR is 1.1. BUN is 15, creatinine is 0.8. Total bilirubin was 3.4 and improved to 2.8. AST is 136, ALT is 92. A urinalysis shows trace leukocytes with 4 white cells. Her test is negative. IN SUMMARY: This is a 43-year-old woman admitted with multiple antibiotic allergies with a severe PENICILLIN ALLERGY and a LEVAQUIN ALLERGY. I am asked to see her for antibiotic recommendations. She has no signs of cholecystitis; concern is for choledocholithiasis. Would obtain blood cultures. She is going for an MRCP. If plans for ERCP, would give tigacillin and gentamicin. Would treat her with IV fluids and follow renal function as well. Would add Flagyl as well. She just received a dose of LEVAQUIN which should be adequate for 24 hours. The case was discussed with both GI and the hospitalist. CIERA GARCIA M.D. [id number]
[2018-12-26] MEDS ORDERED: LACTATED RINGERS SOLUTION 1,000 ML/1,000 ML INFUS.BAG IV SCH ×2 (00:15→06:15)
[2018-12-26] MEDS: TIGECYCLINE 50 MG in DEXTROSE 5%-WATER - 100 ML IVPB SCH ×2 (10:11→22:27)
[2018-12-26 10:31] LABS: ALBUMIN 3.6 g/dl (3.4-5.0); ALK PHOS 82 U/L (45-117); AMYLASE 67 U/L (25-115); ANION GAP 9 MMOL/L (8-16); BILIRUBIN,DIRECT 0.6 mg/dL (0.0-0.2); BILIRUBIN,TOTAL 2.7 mg/dL (0.2-1); BLOOD UREA NITROGEN 19 mg/dL (7-18); CHLORIDE 111 mmol/L (98-107); CO2 22 mmol/L (21-32); CREATININE 0.7 mg/dL (0.55-1.3); GLUCOSE,RANDOM 78 mg/dL (74-106); LIPASE 214 U/L (73-393); MAGNESIUM 2.3 mg/dL (1.8-2.4); PHOSPHOROUS 2.9 mg/dL (2.5-4.9); POTASSIUM 3.7 mmol/L (3.5-5.1); SGOT/AST 36 U/L (15-37); SGPT/ALT 72 U/L (13-61); SODIUM 142 mmol/L (136-145); TOT PROT 6.6 g/dl (6.4-8.2)
[2018-12-26 10:56] LABS: BASO % 0.2 % (0-2.0); EOS % 0.8 % (0-4.5); HEMATOCRIT 30.4 % (32.4-45.2); HEMOGLOBIN 10.5 GM/dL (10.7-15.3); LYMPH % 23.2 % (8-40); MCH 33.1 pg (25.7-33.7); MCHC 34.6 g/dl (32.0-36.0); MEAN CELL VOLUME 95.6 fl (80-96); MEAN PLT VOLUME 7.4 fl (7.5-11.1); MONO % 6.2 % (3.8-10.2); NEUT % 69.6 % (42.8-82.8); PLATELET COUNT 228 K/MM3 (134-434); RBC 3.18 M/mm3 (3.60-5.2); RDW 13.4 % (11.6-15.6); WHITE BLOOD COUNT 4.8 K/mm3 (4.0-10.0)
--- NOTE | 2018-12-26 11:54 | PN ---
Progress Note (short form) - Note Progress Note: Patient is feeling better, s/p ERCP , no nausea or vomiting. Vital Signs Temperature 97.8 F 12/26/18 08:00 Pulse Rate 87 12/26/18 08:00 Respiratory Rate 18 12/26/18 08:00 Blood Pressure 118/57 L 12/26/18 08:00 O2 Sat by Pulse Oximetry (%) 99 12/26/18 09:00 GENERAL: The patient is awake, alert, and fully oriented, in no acute distress. HEAD: Normal with no signs of trauma. EYES: PERRL, extraocular movements intact, sclera anicteric, conjunctiva clear. ENT: Ears normal, oropharynx clear without exudates, moist mucous membranes. NECK: Trachea midline, full range of motion, supple. LUNGS: Breath sounds equal, clear to auscultation bilaterally, no wheezes, no crackles, no accessory muscle use. HEART: Regular rate and rhythm, S1, S2 without murmur, rub or gallop. ABDOMEN: Soft, mild tenderness, normoactive bowel sounds, no guarding, no rebound, no masses appreciated. EXTREMITIES: 2+ pulses, warm, well-perfused, no edema. NEUROLOGICAL: Cranial nerves II through XII grossly intact. Normal speech, gait not observed. PSYCH: Normal mood, normal affect. SKIN: Warm, dry, normal turgor, no rashes or lesions noted CBCD WBC 4.8 K/mm3 (4.0-10.0) 12/26/18 07:30 RBC 3.18 M/mm3 (3.60-5.2) L 12/26/18 07:30 Hgb 10.5 GM/dL (10.7-15.3) L 12/26/18 07:30 Hct 30.4 % (32.4-45.2) L 12/26/18 07:30 MCV 95.6 fl (80-96) 12/26/18 07:30 MCHC 34.6 g/dl (32.0-36.0) 12/26/18 07:30 RDW 13.4 % (11.6-15.6) 12/26/18 07:30 Plt Count 228 K/MM3 (134-434) 12/26/18 07:30 MPV 7.4 fl (7.5-11.1) L 12/26/18 07:30 CMP Sodium 142 mmol/L (136-145) 12/26/18 07:30 Potassium 3.7 mmol/L (3.5-5.1) 12/26/18 07:30 Chloride 111 mmol/L (98-107) H 12/26/18 07:30 Carbon Dioxide 22 mmol/L (21-32) 12/26/18 07:30 Anion Gap 9 MMOL/L (8-16) 12/26/18 07:30 BUN 19 mg/dL (7-18) H 12/26/18 07:30 Creatinine 0.7 mg/dL (0.55-1.3) 12/26/18 07:30 Creat Clearance w eGFR 92.22 (>60) 12/26/18 07:30 Random Glucose 78 mg/dL (74-106) 12/26/18 07:30 Calcium 8.0 mg/dL (8.5-10.1) L 12/26/18 07:30 Total Bilirubin 2.7 mg/dL (0.2-1) H 12/26/18 07:30 AST 36 U/L (15-37) 12/26/18 07:30 ALT 72 U/L (13-61) H 12/26/18 07:30 Alkaline Phosphatase 82 U/L (45-117) 12/26/18 07:30 Total Protein 6.6 g/dl (6.4-8.2) 12/26/18 07:30 Albumin 3.6 g/dl (3.4-5.0) 12/26/18 07:30 Current Medications Generic Name Dose Route Start Last Admin Trade Name Freq PRN Reason Stop Dose Admin Albuterol Sulfate 2 puff 12/25/18 09:10 Ventolin Hfa Inhaler - IH Q4H PRN SHORT OF BREATH/WHEEZING Tigecycline 50 mg/ Dextrose 100 mls @ 100 mls/hr 12/26/18 10:00 12/26/18 10: 11 IVPB 100 mls/hr BID ANTONIA Administration Protocol Metronidazole 500 mg in 100 mls @ 100 mls/hr 12/25/18 18:00 12/26/18 09:06 Flagyl 500mg Premixed Ivpb - IVPB 100 mls/hr Q8H-IV ANTONIA Administration Lactated Ringer's 1,000 ml in 1,000 mls @ 175 mls/hr 12/26/18 06:15 12/26/18 06:07 Lactated Ringers Solution IV 12/26/18 12:15 175 mls/hr ASDIR ANTONIA Administration Lactated Ringer's 1,000 ml in 1,000 mls @ 150 mls/hr 12/26/18 12:15 12/25/18 19:25 Lactated Ringers Solution IV 0 mls ASDIR ANTONIA Administration Morphine Sulfate 2 mg 12/25/18 08:45 Morphine Sulfate IVPUSH Q4H PRN PAIN LEVEL 7 - 10 Ondansetron HCl 4 mg 12/25/18 08:52 12/25/18 18:33 Zofran Injection IVPUSH 4 mg Q6H PRN Administration NAUSEA Home Medications Medication Instructions Recorded Albuterol Sulfate Inhaler - 1 - 2 inh PO Q4H #1 inhaler 06/21/17 [Ventolin HFA Inhaler -] Laboratory Tests 12/25/18 12/25/18 12/26/18 03:31 10:58 07:30 Total Bilirubin 3.4 H 2.8 H 2.7 H Direct Bilirubin 0.6 H AST 136 H 87 H 36 ALT 92 H 105 H 72 H C-Reactive Protein Lipase 127 12/26/18 07:30 Total Bilirubin Direct Bilirubin 0.6 H AST ALT C-Reactive Protein < 0.3 Lipase 214 US: of RUQ: Homogenous Hepatomegaly, multiple nonmobile gallstones in and adjacent to the region of the gallbladder neck without evidence of acute cholecystitis. ASSESSMENT AND PLAN: Patient is a 43yo female visiting family from [place], admitted for evaluation of RUQ / epigastric abdominal pain and nausea. # POD # 1 Choledocholithiasis, s/p ERCP yielded 2 CBD stones after sphincterotomy was made. No stent required as per . Patient is going for cholecystectomy on Friday. On Tygacil and Flagyl. Given tygacil due to PCN allergy and levaquin allergy. Continue Tygacil for now. # Acute transaminitis due to gallstones, improving # Obesity with BMI of 32kg # Hepatomegaly follow up US as an outpatient. DVT px: SCds for now Visit type - Emergency Visit Emergency Visit: Yes ED Registration Date: 12/25/18 Care time: The patient presented to the Emergency Department on the above date and was hospitalized for further evaluation of their emergent condition. - New Patient This patient is new to me today: No - Critical Care Critical Care patient: No - Discharge Referral Referred to [facility] Med P.C.: No
[2018-12-26] MEDS: LACTATED RINGERS SOLUTION 1,000 ML/1,000 ML INFUS.BAG IV SCH ×2 (12:43→20:22)
--- NOTE | 2018-12-26 13:53 | PN ---
Progress Note (short form) - Note Progress Note: s/p ercp with sphincterotomy, 2 stones removed did well no abdominal pain no fevers Vital Signs Period Temp Pulse Resp BP Sys/Zhong Pulse Ox Last 24 Hr 97.8 F-98.7 F 69-94 15-18 115-136/57-80 97-100 cor-rrr lungs clear abd soft,nt ext no edema CBC, BMP 12/26/18 07:30 12/26/18 07:30 Microbiology 12/25/18 03:31 Urine - Urine Clean Catch Urine Culture - Final NO GROWTH OBTAINED a/p choledocholithiasis s/p ercp and sphincterotomy-lfts improving blood cultures ordered but never sent for cholycystectomy on Friday penicillin allergy (swells up) levaquin allergy (rash) continue tygacil Problem List - Problems (1) Choledocholithiasis Code(s): K80.50 - CALCULUS OF BILE DUCT W/O CHOLANGITIS OR CHOLECYST W/O OBST (2) Calculus of gallbladder and bile duct w/cholecystitis w/o obstruction Code(s): K80.60 - CALCULUS OF GB AND BILE DUCT W CHOLECYST, UNSP, W/O OBST Qualifiers: Cholecystitis acuity: acute and chronic Qualified Code(s): K80.66 - Calculus of gallbladder and bile duct with acute and chronic cholecystitis without obstruction (3) Allergy to multiple antibiotics Code(s): Z88.1 - ALLERGY STATUS TO OTHER ANTIBIOTIC AGENTS STATUS
--- NOTE | 2018-12-26 14:20 | PN.GI ---
GI Progress Note Subjective: s/p ERC with removal of stones, asymptomatic, no abdominal pain, no nausea, no vomiting - Objective Vital Signs: Vital Signs Temperature 97.8 F 12/26/18 08:00 Pulse Rate 87 12/26/18 08:00 Respiratory Rate 18 12/26/18 08:00 Blood Pressure 118/57 L 12/26/18 08:00 O2 Sat by Pulse Oximetry (%) 99 12/26/18 09:00 Constitutional: Well Nourished Eyes: Yes: Conjunctiva Clear, Occular Prosthesis HENT: Yes: Tonsillar Exudate Cardiovascular: Yes: Regular Rate and Rhythm Respiratory: Yes: CTA Bilaterally ...Palpate: Yes: Soft. No: Firm/Rigid, Guarding, Hepatomegaly, Mass, Pulsatile Mass, Splenomegaly, Tenderness Labs: CBC, BMP 12/26/18 07:30 12/26/18 07:30 INR, PTT INR 1.16 (0.83-1.09) H 12/25/18 10:58 Problem List - Problems (1) Choledocholithiasis Assessment/Plan: s/p ERC R> for cholecystectomy advance diet Code(s): K80.50 - CALCULUS OF BILE DUCT W/O CHOLANGITIS OR CHOLECYST W/O OBST
[2018-12-26] MEDS: ONDANSETRON 4 MG/2 ML VIAL IVPUSH PRN ×2 (14:55→20:50)
[2018-12-26] MEDS ORDERED: PT OWN MED DRAWER 7, Y5N ONE (22:05)
--- NOTE | 2018-12-27 07:37 | PN ---
Progress Note, Physician Chief Complaint: s/p ERCP under general anesthesia History of Present Illness: post op day one - Current Medication List Current Medications: Active Medications Albuterol Sulfate (Ventolin Hfa Inhaler -) 2 puff IH Q4H PRN PRN Reason: SHORT OF BREATH/WHEEZING Tigecycline 50 mg/ Dextrose 100 mls @ 100 mls/hr IVPB BID ANTONIA; Protocol Last Admin: 12/26/18 22:27 Dose: 100 mls/hr Metronidazole (Flagyl 500mg Premixed Ivpb -) 500 mg in 100 mls @ 100 mls/hr IVPB Q8H-IV ANTONIA Last Admin: 12/27/18 02:25 Dose: 100 mls/hr Lactated Ringer's (Lactated Ringers Solution) 1,000 ml in 1,000 mls @ 150 mls/ hr IV ASDIR ANTONIA Last Admin: 12/26/18 20:22 Dose: 150 mls/hr Morphine Sulfate (Morphine Sulfate) 2 mg IVPUSH Q4H PRN PRN Reason: PAIN LEVEL 7 - 10 Ondansetron HCl (Zofran Injection) 4 mg IVPUSH Q6H PRN PRN Reason: NAUSEA Last Admin: 12/26/18 20:50 Dose: 4 mg - Objective Vital Signs: Vital Signs Temperature 98.6 F 12/27/18 06:00 Pulse Rate 78 12/27/18 06:00 Respiratory Rate 18 12/27/18 06:00 Blood Pressure 114/70 12/27/18 06:00 O2 Sat by Pulse Oximetry (%) 99 12/26/18 21:00 Constitutional: Yes: Well Nourished, Mild Distress Cardiovascular: Yes: WNL Respiratory: Yes: WNL Gastrointestinal: Yes: Vomiting Labs: CBC, BMP 12/26/18 07:30 12/26/18 07:30 INR, PTT INR 1.16 (0.83-1.09) H 12/25/18 10:58 Assessment/Plan no adverse effect of anesthetic. dept of anesthesiology will sign off care at this time
[2018-12-27] MEDS ORDERED: PT OWN MED DRAWER 7, Y5N ONE ×2 (10:25→20:42)
--- NOTE | 2018-12-27 10:45 | PN ---
Physical Exam: SUBJECTIVE: Patient seen and examined at bedside. No overnight events. No new complaints. Pain well controlled. Denies CP,HERNANDEZ,SOB, palpitations, nausea, vomiting, fever or chills. OBJECTIVE: Vital Signs Period Temp Pulse Resp BP Sys/Zhong Pulse Ox Last 24 Hr 98.6 F-99 F 74-87 14-19 103-126/66-74 99-99 GENERAL: AAOx3 NAD HEAD: NCAT EYES: PERRL, EOMI, icteric sclera , conjunctiva clear. No ptosis. ENT: moist mucous membranes. NECK: Trachea midline, full range of motion, supple. LUNGS: CTAB, no wheezes, no crackles, no accessory muscle use. HEART: RRR, S1, S2 , no M/G/R ABDOMEN: Soft, NTND,NABS, no guarding, no rebound, no hepatosplenomegaly, no masses. EXTREMITIES: 2+ pulses, warm, well-perfused, no edema. NEUROLOGICAL: Cranial nerves II through XII grossly intact. Normal speech, gait not observed. PSYCH: Normal mood, normal affect. SKIN: Warm, dry, normal turgor, no rashes or lesions noted Laboratory Results - last 24 hr 12/26/18 07:30 WBC 4.8 RBC 3.18 L Hgb 10.5 L Hct 30.4 L MCV 95.6 MCH 33.1 MCHC 34.6 RDW 13.4 Plt Count 228 MPV 7.4 L Absolute Neuts (auto) 3.3 Neutrophils % 69.6 Lymphocytes % 23.2 D Monocytes % 6.2 Eosinophils % 0.8 Basophils % 0.2 Nucleated RBC % 0 Active Medications Generic Name Dose Route Start Last Admin Trade Name Freq PRN Reason Stop Dose Admin Albuterol Sulfate 2 puff 12/25/18 09:10 Ventolin Hfa Inhaler - IH Q4H PRN SHORT OF BREATH/WHEEZING Tigecycline 50 mg/ Dextrose 100 mls @ 100 mls/hr 12/26/18 10:00 12/26/18 22: 27 IVPB 100 mls/hr BID ANTONIA Administration Protocol Metronidazole 500 mg in 100 mls @ 100 mls/hr 12/25/18 18:00 12/27/18 10:29 Flagyl 500mg Premixed Ivpb - IVPB 100 mls/hr Q8H-IV ANTONIA Administration Lactated Ringer's 1,000 ml in 1,000 mls @ 150 mls/hr 12/26/18 12:15 12/26/18 20:22 Lactated Ringers Solution IV 150 mls/hr ASDIR ANTONIA Administration Morphine Sulfate 2 mg 12/25/18 08:45 Morphine Sulfate IVPUSH Q4H PRN PAIN LEVEL 7 - 10 Ondansetron HCl 4 mg 12/25/18 08:52 12/26/18 20:50 Zofran Injection IVPUSH 4 mg Q6H PRN Administration NAUSEA ASSESSMENT/PLAN: Patient is a 43yo female visiting family from [place], admitted for evaluation of RUQ / epigastric abdominal pain and nausea. Problem List - Problems (1) Choledocholithiasis Assessment/Plan: * POD# 2 ERCP yielded 2 CBD stones after sphincterotomy was made. No stent required. * IVFwith NS @ 125ml/hr * Zofran for nausea. * Pain control with morphine 2mg Q6H * NPO after midnight for CCY tomorrow. (2) Obesity (BMI 30.0-34.9) Assessment/Plan: counseled on importance of weight loss. * discussed the health impact of being overweight. * advised to reduce caloric intake (3) Bronchitis Assessment/Plan: Albuterol PRN for SOB/wheezing. Visit type - Emergency Visit Emergency Visit: Yes ED Registration Date: 12/25/18 Care time: The patient presented to the Emergency Department on the above date and was hospitalized for further evaluation of their emergent condition. - New Patient This patient is new to me today: No - Critical Care Critical Care patient: No
[2018-12-27] MEDS: TIGECYCLINE 50 MG in DEXTROSE 5%-WATER - 100 ML IVPB SCH ×2 (11:32→21:01)
[2018-12-27] MEDS: LACTATED RINGERS SOLUTION 1,000 ML/1,000 ML INFUS.BAG IV SCH ×2 (11:33→23:55)
--- NOTE | 2018-12-27 14:29 | PN ---
Teaching Attending Note Name of Resident: Ernesto Fajardo ATTENDING PHYSICIAN STATEMENT I saw and evaluated the patient. I reviewed the resident's note and discussed the case with the resident. I agree with the resident's findings and plan as documented. SUBJECTIVE: Patient is better going to OR on Friday. tolerating diet. OBJECTIVE: Vital Signs Temperature 98.6 F 12/27/18 07:45 Pulse Rate 74 12/27/18 07:45 Respiratory Rate 14 12/27/18 07:45 Blood Pressure 103/66 12/27/18 07:45 O2 Sat by Pulse Oximetry (%) 99 12/27/18 08:19 GENERAL: The patient is awake, alert, and fully oriented, in no acute distress. HEAD: Normal with no signs of trauma. EYES: PERRL, extraocular movements intact, sclera anicteric, conjunctiva clear. ENT: Ears normal, oropharynx clear without exudates, moist mucous membranes. NECK: Trachea midline, full range of motion, supple. LUNGS: Breath sounds equal, clear to auscultation bilaterally, no wheezes, no crackles, no accessory muscle use. HEART: Regular rate and rhythm, S1, S2 without murmur, rub or gallop. ABDOMEN: Soft, NT, ND, normoactive bowel sounds, no guarding, no rebound, no masses appreciated.. EXTREMITIES: 2+ pulses, warm, well-perfused, no edema. NEUROLOGICAL: Cranial nerves II through XII grossly intact. Normal speech, gait not observed. PSYCH: Normal mood, normal affect. SKIN: Warm, dry, normal turgor, no rashes or lesions noted CBCD WBC 4.8 K/mm3 (4.0-10.0) 12/26/18 07:30 RBC 3.18 M/mm3 (3.60-5.2) L 12/26/18 07:30 Hgb 10.5 GM/dL (10.7-15.3) L 12/26/18 07:30 Hct 30.4 % (32.4-45.2) L 12/26/18 07:30 MCV 95.6 fl (80-96) 12/26/18 07:30 MCHC 34.6 g/dl (32.0-36.0) 12/26/18 07:30 RDW 13.4 % (11.6-15.6) 12/26/18 07:30 Plt Count 228 K/MM3 (134-434) 12/26/18 07:30 MPV 7.4 fl (7.5-11.1) L 12/26/18 07:30 CMP Sodium 142 mmol/L (136-145) 12/26/18 07:30 Potassium 3.7 mmol/L (3.5-5.1) 12/26/18 07:30 Chloride 111 mmol/L (98-107) H 12/26/18 07:30 Carbon Dioxide 22 mmol/L (21-32) 12/26/18 07:30 Anion Gap 9 MMOL/L (8-16) 12/26/18 07:30 BUN 19 mg/dL (7-18) H 12/26/18 07:30 Creatinine 0.7 mg/dL (0.55-1.3) 12/26/18 07:30 Creat Clearance w eGFR 92.22 (>60) 12/26/18 07:30 Random Glucose 78 mg/dL (74-106) 12/26/18 07:30 Calcium 8.0 mg/dL (8.5-10.1) L 12/26/18 07:30 Total Bilirubin 2.7 mg/dL (0.2-1) H 12/26/18 07:30 AST 36 U/L (15-37) 12/26/18 07:30 ALT 72 U/L (13-61) H 12/26/18 07:30 Alkaline Phosphatase 82 U/L (45-117) 12/26/18 07:30 Total Protein 6.6 g/dl (6.4-8.2) 12/26/18 07:30 Albumin 3.6 g/dl (3.4-5.0) 12/26/18 07:30 Current Medications Generic Name Dose Route Start Last Admin Trade Name Freq PRN Reason Stop Dose Admin Albuterol Sulfate 2 puff 12/25/18 09:10 Ventolin Hfa Inhaler - IH Q4H PRN SHORT OF BREATH/WHEEZING Tigecycline 50 mg/ Dextrose 100 mls @ 100 mls/hr 12/26/18 10:00 12/27/18 11: 32 IVPB 100 mls/hr BID ANTONIA Administration Protocol Metronidazole 500 mg in 100 mls @ 100 mls/hr 12/25/18 18:00 12/27/18 10:29 Flagyl 500mg Premixed Ivpb - IVPB 100 mls/hr Q8H-IV ANTONIA Administration Lactated Ringer's 1,000 ml in 1,000 mls @ 150 mls/hr 12/26/18 12:15 12/27/18 11:33 Lactated Ringers Solution IV 150 mls/hr ASDIR ANTONIA Administration Morphine Sulfate 2 mg 12/25/18 08:45 Morphine Sulfate IVPUSH Q4H PRN PAIN LEVEL 7 - 10 Ondansetron HCl 4 mg 12/25/18 08:52 12/26/18 20:50 Zofran Injection IVPUSH 4 mg Q6H PRN Administration NAUSEA Home Medications Medication Instructions Recorded Albuterol Sulfate Inhaler - 1 - 2 inh PO Q4H #1 inhaler 06/21/17 [Ventolin HFA Inhaler -] US: of RUQ: Homogenous Hepatomegaly, multiple nonmobile gallstones in and adjacent to the region of the gallbladder neck without evidence of acute cholecystitis. ASSESSMENT AND PLAN: Patient is a 43yo female visiting family from [place], admitted for evaluation of RUQ / epigastric abdominal pain and nausea. # POD # 2 Choledocholithiasis, s/p ERCP yielded 2 CBD stones after sphincterotomy was made. No stent required as per . Patient is going for cholecystectomy on Friday. continue IV antibiotic Tygacil and Flagyl for now , due to PCN allergy and levaquin allergy. # Acute transaminitis due to gallstones, improving # Obesity with BMI of 32kg # Hepatomegaly follow up US as an outpatient. DVT px: SCds for now
--- NOTE | 2018-12-27 15:07 | PN.GI ---
GI Progress Note Subjective: tolerated clears, intermittent ruq pain, no nausea and no vomiting - Objective Vital Signs: Vital Signs Temperature 98.6 F 12/27/18 07:45 Pulse Rate 74 12/27/18 07:45 Respiratory Rate 14 12/27/18 07:45 Blood Pressure 103/66 12/27/18 07:45 O2 Sat by Pulse Oximetry (%) 99 12/27/18 08:19 Constitutional: Well Nourished Eyes: Yes: Conjunctiva Clear HENT: Yes: Atraumatic Neck: Yes: Supple Cardiovascular: Yes: Regular Rate and Rhythm Respiratory: Yes: CTA Bilaterally ...Palpate: Yes: Soft. No: Firm/Rigid, Hepatomegaly, Mass, Pulsatile Mass, Splenomegaly, Tenderness, Tenderness, Epigastium Labs: CBC, BMP 12/26/18 07:30 12/26/18 07:30 INR, PTT INR 1.16 (0.83-1.09) H 12/25/18 10:58 Problem List - Problems (1) Choledocholithiasis Assessment/Plan: R> for cholecystectomy Code(s): K80.50 - CALCULUS OF BILE DUCT W/O CHOLANGITIS OR CHOLECYST W/O OBST
[2018-12-27] MEDS: ONDANSETRON 4 MG/2 ML VIAL IVPUSH PRN (15:37)
[2018-12-28] MEDS: ONDANSETRON 4 MG/2 ML VIAL IVPUSH PRN (03:57)
[2018-12-28 07:32] LABS: BASO % 0.5 % (0-2.0); HEMATOCRIT 32.7 % (32.4-45.2); HEMOGLOBIN 11.5 GM/dL (10.7-15.3); MCH 33.2 pg (25.7-33.7); MCHC 35.1 g/dl (32.0-36.0); MEAN CELL VOLUME 94.6 fl (80-96); MEAN PLT VOLUME 6.9 fl (7.5-11.1); MONO % 7.1 % (3.8-10.2); NEUT % 63.4 % (42.8-82.8); PLATELET COUNT 243 K/MM3 (134-434); RBC 3.45 M/mm3 (3.60-5.2); RDW 13.5 % (11.6-15.6); WHITE BLOOD COUNT 4.8 K/mm3 (4.0-10.0)
[2018-12-28 07:39] LABS: INR 1.35 (0.83-1.09)
[2018-12-28 07:41] LABS: ACTIVATED PTT 46.9 SECONDS (25.2-36.5)
[2018-12-28 07:58] LABS: ALBUMIN 3.6 g/dl (3.4-5.0); ALK PHOS 85 U/L (45-117); ANION GAP 8 MMOL/L (8-16); BILIRUBIN,TOTAL 3.3 mg/dL (0.2-1); BLOOD UREA NITROGEN 14 mg/dL (7-18); CALCIUM 8.5 mg/dL (8.5-10.1); CHLORIDE 108 mmol/L (98-107); CO2 24 mmol/L (21-32); CREATININE 0.8 mg/dL (0.55-1.3); GLUCOSE,RANDOM 86 mg/dL (74-106); POTASSIUM 3.8 mmol/L (3.5-5.1); SGOT/AST 13 U/L (15-37); SGPT/ALT 45 U/L (13-61); SODIUM 139 mmol/L (136-145); TOT PROT 6.8 g/dl (6.4-8.2)
[2018-12-28] MEDS: TIGECYCLINE 50 MG in DEXTROSE 5%-WATER - 100 ML IVPB SCH ×2 (10:17→21:56)
[2018-12-28] MEDS ORDERED: BUPIVACAINE HCL/PF 0.5% (5MG/ML) 10 ML VIAL ONE (10:44)
[2018-12-28] MEDS ORDERED: BENZOIN TINCTURE SWABSTICK TP ONE (10:44)
[2018-12-28] MEDS ORDERED: MIDAZOLAM HCL 2 MG/2 ML SINGLE DOSE VIAL ONE ×2 (10:54)
[2018-12-28] MEDS ORDERED: fentaNYL CITRATE 250 MCG/5 ML VIAL ONE (10:58)
[2018-12-28] MEDS ORDERED: ROCURONIUM BROMIDE 50 MG/5 ML VIAL ONE (10:58)
[2018-12-28] MEDS ORDERED: PROPOFOL 20 ML ONE (10:58)
[2018-12-28] MEDS ORDERED: BUPIVACAINE HCL/PF (5 MG/ML) 30 ML VIAL IJ ONE ×2 (11:45)
[2018-12-28] MEDS ORDERED: NEOSTIGMINE METHYLSULFATE 0.5 MG/ML - 10 ML MDV ONE (11:53)
[2018-12-28] MEDS ORDERED: LIDOCAINE HCL/PF 2% SDV 5ML VIAL ONE (11:54)
[2018-12-28] MEDS ORDERED: GLYCOPYRROLATE 0.2 MG/1 ML VIAL ONE (11:54)
[2018-12-28] MEDS ORDERED: DEXAMETHASONE SOD PHOSPHATE 4 MG/1 ML VIAL ONE (11:54)
[2018-12-28] MEDS ORDERED: ONDANSETRON 4 MG/2 ML VIAL IVPUSH PRN ×2 (12:15→12:42)
[2018-12-28] MEDS ORDERED: LACTATED RINGERS SOLUTION 1,000 ML IV SCH ×2 (12:15→12:42)
[2018-12-28] MEDS ORDERED: TIGECYCLINE 50 MG VIAL (RESTRICTED TO ID) IVPB ONE (12:15)
[2018-12-28] MEDS ORDERED: LACTATED RINGERS SOLUTION 1,000 ML/1,000 ML INFUS.BAG IV SCH (12:42)
[2018-12-28] MEDS ORDERED: ALBUTEROL SO4 8 GM HFA INHALER IH PRN (12:42)
[2018-12-28] MEDS: LACTATED RINGERS SOLUTION 1,000 ML/1,000 ML INFUS.BAG IV SCH ×2 (13:58→14:36)
[2018-12-28] MEDS: MORPHINE SULFATE 2 MG/ML VIAL IVPUSH PRN ×2 (14:33→19:50)
--- NOTE | 2018-12-28 17:27 | PN ---
Physical Exam: SUBJECTIVE: Patient seen and examined at bedside. No acute events overnight. OBJECTIVE: Vital Signs Period Temp Pulse Resp BP Sys/Zhong Pulse Ox Last 24 Hr 98.2 F-98.8 F 68-86 15-24 115-133/68-82 98-100 GENERAL: AAOx3 NAD HEAD: Atraumatic/Normocephalic EYES: EOMI Sclera Clear ENT: MMM NECK: Trachea midline, full range of motion, supple. LUNGS: CTAB HEART:RRR nl S1S2 ABDOMEN: Salas's negative NDNT BS+ EXTREMITIES: No CCE NEUROLOGICAL: Cranial nerves II through XII grossly intact. Normal speech, gait not observed. PSYCH: Normal mood, normal affect. SKIN: Warm, dry, normal turgor, no rashes or lesions noted Laboratory Results - last 24 hr 12/28/18 12/28/18 12/28/18 07:00 07:00 07:00 WBC 4.8 RBC 3.45 L Hgb 11.5 Hct 32.7 MCV 94.6 MCH 33.2 MCHC 35.1 RDW 13.5 Plt Count 243 MPV 6.9 L Absolute Neuts (auto) 3.1 Neutrophils % 63.4 Lymphocytes % 26.0 Monocytes % 7.1 Eosinophils % 3.0 D Basophils % 0.5 Nucleated RBC % 0 PT with INR INR PTT (Actin FS) Sodium 139 Potassium 3.8 Chloride 108 H Carbon Dioxide 24 Anion Gap 8 BUN 14 Creatinine 0.8 Creat Clearance w eGFR 79.05 Random Glucose 86 Calcium 8.5 Total Bilirubin 3.3 H AST 13 L ALT 45 Alkaline Phosphatase 85 Total Protein 6.8 Albumin 3.6 Blood Type A NEGATIVE Antibody Screen Positive H Prewarmed Antibody Srcn Negative Antibody Identification Nscaa Antigen Identification No Result Required. 12/28/18 07:00 WBC RBC Hgb Hct MCV MCH MCHC RDW Plt Count MPV Absolute Neuts (auto) Neutrophils % Lymphocytes % Monocytes % Eosinophils % Basophils % Nucleated RBC % PT with INR 16.00 H INR 1.35 H PTT (Actin FS) 46.9 H Sodium Potassium Chloride Carbon Dioxide Anion Gap BUN Creatinine Creat Clearance w eGFR Random Glucose Calcium Total Bilirubin AST ALT Alkaline Phosphatase Total Protein Albumin Blood Type Antibody Screen Prewarmed Antibody Srcn Antibody Identification Antigen Identification Active Medications Generic Name Dose Route Start Last Admin Trade Name Freq PRN Reason Stop Dose Admin Albuterol Sulfate 2 puff 12/28/18 12:42 Ventolin Hfa Inhaler - IH Q4H PRN SHORT OF BREATH/WHEEZING Metronidazole 500 mg in 100 mls @ 100 mls/hr 12/28/18 18:00 Flagyl 500mg Premixed Ivpb - IVPB Q8H-IV ANTONIA Tigecycline 50 mg/ Dextrose 100 mls @ 100 mls/hr 12/28/18 22:00 IVPB BID ANTONIA Protocol Lactated Ringer's 1,000 ml in 1,000 mls @ 150 mls/hr 12/28/18 14:00 12/28/18 14:36 Lactated Ringers Solution IV Not Given ASDIR ANTONIA Morphine Sulfate 2 mg 12/28/18 12:42 12/28/18 14:33 Morphine Sulfate IVPUSH 2 mg Q4H PRN Administration PAIN LEVEL 7 - 10 Ondansetron HCl 4 mg 12/28/18 12:42 Zofran Injection IVPUSH Q6H PRN NAUSEA ASSESSMENT/PLAN: Patient is a 43yo female visiting family from [place], admitted for evaluation of RUQ / epigastric abdominal pain and nausea. # Choledocholithiasis * POD# 3 ERCP yielded 2 CBD stones after sphincterotomy was made. No stent required. * IVF with NS @ 125ml/hr * Zofran for nausea. * Pain control with morphine 2mg Q4H * POD # 0 LAP SHEILA W/ DR Michelle LOW # Bronchitis Albuterol PRN for SOB/wheezing. #FEN * LR@150cc/hr * Monitor Electrolytes * Regular Diet Visit type - Emergency Visit Emergency Visit: Yes ED Registration Date: 12/25/18 Care time: The patient presented to the Emergency Department on the above date and was hospitalized for further evaluation of their emergent condition. - New Patient This patient is new to me today: Yes Date on this admission: 12/28/18 - Critical Care Critical Care patient: No - Discharge Referral Referred to [facility] Med P.C.: No
--- NOTE | 2018-12-28 19:28 | PN ---
Teaching Attending Note Name of Resident: David Anderson ATTENDING PHYSICIAN STATEMENT I saw and evaluated the patient. I reviewed the resident's note and discussed the case with the resident. I agree with the resident's findings and plan as documented. SUBJECTIVE: Patient is comfortable with no acute distress. OBJECTIVE: Vital Signs Temperature 98.7 F 12/28/18 16:41 Pulse Rate 76 12/28/18 16:41 Respiratory Rate 18 12/28/18 16:41 Blood Pressure 124/76 12/28/18 16:41 O2 Sat by Pulse Oximetry (%) 95 12/28/18 16:41 GENERAL: The patient is awake, alert, and fully oriented, in no acute distress. HEAD: Normal with no signs of trauma. EYES: PERRL, extraocular movements intact, sclera anicteric, conjunctiva clear. ENT: Ears normal, oropharynx clear without exudates, moist mucous membranes. NECK: Trachea midline, full range of motion, supple. LUNGS: Breath sounds equal, clear to auscultation bilaterally, no wheezes, no crackles, no accessory muscle use. HEART: Regular rate and rhythm, S1, S2 without murmur, rub or gallop. ABDOMEN: Soft, NT, ND, normoactive bowel sounds, no guarding, no rebound, no hepatosplenomegaly, no masses. EXTREMITIES: 2+ pulses, warm, well-perfused, no edema. NEUROLOGICAL: Cranial nerves II through XII grossly intact. Normal speech, gait not observed. PSYCH: Normal mood, normal affect. SKIN: Warm, dry, normal turgor, no rashes or lesions noted CBCD WBC 4.8 K/mm3 (4.0-10.0) 12/28/18 07:00 RBC 3.45 M/mm3 (3.60-5.2) L 12/28/18 07:00 Hgb 11.5 GM/dL (10.7-15.3) 12/28/18 07:00 Hct 32.7 % (32.4-45.2) 12/28/18 07:00 MCV 94.6 fl (80-96) 12/28/18 07:00 MCHC 35.1 g/dl (32.0-36.0) 12/28/18 07:00 RDW 13.5 % (11.6-15.6) 12/28/18 07:00 Plt Count 243 K/MM3 (134-434) 12/28/18 07:00 MPV 6.9 fl (7.5-11.1) L 12/28/18 07:00 CMP Sodium 139 mmol/L (136-145) 12/28/18 07:00 Potassium 3.8 mmol/L (3.5-5.1) 12/28/18 07:00 Chloride 108 mmol/L (98-107) H 12/28/18 07:00 Carbon Dioxide 24 mmol/L (21-32) 12/28/18 07:00 Anion Gap 8 MMOL/L (8-16) 12/28/18 07:00 BUN 14 mg/dL (7-18) 12/28/18 07:00 Creatinine 0.8 mg/dL (0.55-1.3) 12/28/18 07:00 Creat Clearance w eGFR 79.05 (>60) 12/28/18 07:00 Random Glucose 86 mg/dL (74-106) 12/28/18 07:00 Calcium 8.5 mg/dL (8.5-10.1) 12/28/18 07:00 Total Bilirubin 3.3 mg/dL (0.2-1) H 12/28/18 07:00 AST 13 U/L (15-37) L 12/28/18 07:00 ALT 45 U/L (13-61) 12/28/18 07:00 Alkaline Phosphatase 85 U/L (45-117) 12/28/18 07:00 Total Protein 6.8 g/dl (6.4-8.2) 12/28/18 07:00 Albumin 3.6 g/dl (3.4-5.0) 12/28/18 07:00 Current Medications Generic Name Dose Route Start Last Admin Trade Name Freq PRN Reason Stop Dose Admin Albuterol Sulfate 2 puff 12/28/18 12:42 Ventolin Hfa Inhaler - IH Q4H PRN SHORT OF BREATH/WHEEZING Metronidazole 500 mg in 100 mls @ 100 mls/hr 12/28/18 18:00 12/28/18 18:15 Flagyl 500mg Premixed Ivpb - IVPB 100 mls/hr Q8H-IV ANTONIA Administration Tigecycline 50 mg/ Dextrose 100 mls @ 100 mls/hr 12/28/18 22:00 IVPB BID ANTONIA Protocol Lactated Ringer's 1,000 ml in 1,000 mls @ 150 mls/hr 12/28/18 14:00 12/28/18 14:36 Lactated Ringers Solution IV Not Given ASDIR ANTONIA Morphine Sulfate 2 mg 12/28/18 12:42 12/28/18 14:33 Morphine Sulfate IVPUSH 2 mg Q4H PRN Administration PAIN LEVEL 7 - 10 Ondansetron HCl 4 mg 12/28/18 12:42 Zofran Injection IVPUSH Q6H PRN NAUSEA Home Medications Medication Instructions Recorded Albuterol Sulfate Inhaler - 1 - 2 inh PO Q4H #1 inhaler 06/21/17 [Ventolin HFA Inhaler -] US: of RUQ: Homogenous Hepatomegaly, multiple nonmobile gallstones in and adjacent to the region of the gallbladder neck without evidence of acute cholecystitis. ASSESSMENT AND PLAN: Patient is a 43yo female visiting family from [place], admitted for evaluation of RUQ / epigastric abdominal pain and nausea. # POD # 3 Choledocholithiasis, s/p ERCP yielded 2 CBD stones after sphincterotomy was made. No stent required as per . Patient is going for cholecystectomy on Friday. On Tygacil and Flagyl continue as per ID, Given tygacil due to PCN allergy and levaquin allergy. # Acute transaminitis due to gallstones, improving # Obesity with BMI of 32kg weight loss and diet was explained # Hepatomegaly follow up US as an outpatient. DVT px: SCds for now
--- NOTE | 2018-12-28 21:59 | OP ---
Operative Note - Note: Operative Date: 12/28/18 Pre-Operative Diagnosis: choledocholithiasis Operation: laparoscopic cholecystectomy Findings: distended gallbladder Post-Operative Diagnosis: Same as Pre-op Surgeon: Luis Dawkins Inspector Metal Can: Reed Wolf Anesthesiologist/RN STAFF: Melani Rosen MD Anesthesia: General, Local Specimens Removed: gallbladder Estimated Blood Loss (mls): 2 Fluid Volume Replaced (mls): 800 Operative Report Dictated: Yes
[2018-12-29] MEDS: LACTATED RINGERS SOLUTION 1,000 ML/1,000 ML INFUS.BAG IV SCH (05:24)
[2018-12-29 07:04] LABS: HEMATOCRIT 32.5 % (32.4-45.2); HEMOGLOBIN 11.6 GM/dL (10.7-15.3); MCH 34.5 pg (25.7-33.7); MCHC 35.8 g/dl (32.0-36.0); MEAN CELL VOLUME 96.3 fl (80-96); MEAN PLT VOLUME 7.3 fl (7.5-11.1); PLATELET COUNT 256 K/MM3 (134-434); RBC 3.37 M/mm3 (3.60-5.2); RDW 13.6 % (11.6-15.6); WHITE BLOOD COUNT 6.9 K/mm3 (4.0-10.0)
[2018-12-29 07:52] LABS: ALBUMIN 3.4 g/dl (3.4-5.0); ALK PHOS 81 U/L (45-117); ANION GAP 7 MMOL/L (8-16); BILIRUBIN,DIRECT 0.6 mg/dL (0.0-0.2); BILIRUBIN,TOTAL 2.7 mg/dL (0.2-1); BLOOD UREA NITROGEN 15 mg/dL (7-18); CALCIUM 8.4 mg/dL (8.5-10.1); CHLORIDE 108 mmol/L (98-107); CO2 23 mmol/L (21-32); CREATININE 0.7 mg/dL (0.55-1.3); GLUCOSE,RANDOM 99 mg/dL (74-106); MAGNESIUM 2.4 mg/dL (1.8-2.4); PHOSPHOROUS 3.2 mg/dL (2.5-4.9); POTASSIUM 3.8 mmol/L (3.5-5.1); SGOT/AST 17 U/L (15-37); SGPT/ALT 42 U/L (13-61); SODIUM 138 mmol/L (136-145); TOT PROT 6.6 g/dl (6.4-8.2)
--- NOTE | 2018-12-29 08:35 | PN ---
Teaching Attending Note Name of Resident: David Anderson ATTENDING PHYSICIAN STATEMENT I saw and evaluated the patient. I reviewed the resident's note and discussed the case with the resident. I agree with the resident's findings and plan as documented. SUBJECTIVE: OBJECTIVE: Vital Signs Temperature 99 F 12/29/18 05:53 Pulse Rate 86 12/29/18 05:53 Respiratory Rate 20 12/29/18 05:53 Blood Pressure 134/87 12/29/18 05:53 O2 Sat by Pulse Oximetry (%) 96 12/28/18 22:00 GENERAL: The patient is awake, alert, and fully oriented, in no acute distress. HEAD: Normal with no signs of trauma. EYES: PERRL, extraocular movements intact, sclera anicteric, conjunctiva clear. ENT: Ears normal, oropharynx clear without exudates, moist mucous membranes. NECK: Trachea midline, full range of motion, supple. LUNGS: Breath sounds equal, clear to auscultation bilaterally, no wheezes, no crackles, no accessory muscle use. HEART: Regular rate and rhythm, S1, S2 without murmur, rub or gallop. ABDOMEN: Soft, NT, ND, normoactive bowel sounds, no guarding, no rebound, no hepatosplenomegaly, no masses. EXTREMITIES: 2+ pulses, warm, well-perfused, no edema. NEUROLOGICAL: Cranial nerves II through XII grossly intact. Normal speech, gait not observed. PSYCH: Normal mood, normal affect. SKIN: Warm, dry, normal turgor, no rashes or lesions noted CBCD WBC 4.8 K/mm3 (4.0-10.0) 12/28/18 07:00 RBC 3.45 M/mm3 (3.60-5.2) L 12/28/18 07:00 Hgb 11.5 GM/dL (10.7-15.3) 12/28/18 07:00 Hct 32.7 % (32.4-45.2) 12/28/18 07:00 MCV 94.6 fl (80-96) 12/28/18 07:00 MCHC 35.1 g/dl (32.0-36.0) 12/28/18 07:00 RDW 13.5 % (11.6-15.6) 12/28/18 07:00 Plt Count 243 K/MM3 (134-434) 12/28/18 07:00 MPV 6.9 fl (7.5-11.1) L 12/28/18 07:00 CMP Sodium 138 mmol/L (136-145) 12/29/18 06:00 Potassium 3.8 mmol/L (3.5-5.1) 12/29/18 06:00 Chloride 108 mmol/L (98-107) H 12/29/18 06:00 Carbon Dioxide 23 mmol/L (21-32) 12/29/18 06:00 Anion Gap 7 MMOL/L (8-16) L 12/29/18 06:00 BUN 15 mg/dL (7-18) 12/29/18 06:00 Creatinine 0.7 mg/dL (0.55-1.3) 12/29/18 06:00 Creat Clearance w eGFR 92.22 (>60) 12/29/18 06:00 Random Glucose 99 mg/dL (74-106) 12/29/18 06:00 Calcium 8.4 mg/dL (8.5-10.1) L 12/29/18 06:00 Total Bilirubin 2.7 mg/dL (0.2-1) H 12/29/18 06:00 AST 17 U/L (15-37) 12/29/18 06:00 ALT 42 U/L (13-61) 12/29/18 06:00 Alkaline Phosphatase 81 U/L (45-117) 12/29/18 06:00 Total Protein 6.6 g/dl (6.4-8.2) 12/29/18 06:00 Albumin 3.4 g/dl (3.4-5.0) 12/29/18 06:00 Current Medications Generic Name Dose Route Start Last Admin Trade Name Freq PRN Reason Stop Dose Admin Albuterol Sulfate 2 puff 12/28/18 12:42 Ventolin Hfa Inhaler - IH Q4H PRN SHORT OF BREATH/WHEEZING Metronidazole 500 mg in 100 mls @ 100 mls/hr 12/28/18 18:00 12/29/18 01:50 Flagyl 500mg Premixed Ivpb - IVPB 100 mls/hr Q8H-IV ANTONIA Administration Tigecycline 50 mg/ Dextrose 100 mls @ 100 mls/hr 12/28/18 22:00 12/28/18 21: 56 IVPB 100 mls/hr BID ANTONIA Administration Protocol Lactated Ringer's 1,000 ml in 1,000 mls @ 150 mls/hr 12/28/18 14:00 12/29/18 05:24 Lactated Ringers Solution IV 150 mls/hr ASDIR ANTONIA Administration Morphine Sulfate 2 mg 12/28/18 12:42 12/28/18 19:50 Morphine Sulfate IVPUSH 2 mg Q4H PRN Administration PAIN LEVEL 7 - 10 Ondansetron HCl 4 mg 12/28/18 12:42 12/28/18 19:50 Zofran Injection IVPUSH 4 mg Q6H PRN Administration NAUSEA Home Medications Medication Instructions Recorded Albuterol Sulfate Inhaler - 1 - 2 inh PO Q4H #1 inhaler 06/21/17 [Ventolin HFA Inhaler -] US: of RUQ: Homogenous Hepatomegaly, multiple nonmobile gallstones in and adjacent to the region of the gallbladder neck without evidence of acute cholecystitis. ASSESSMENT AND PLAN: Patient is a 43yo female visiting family from [place], admitted for evaluation of RUQ / epigastric abdominal pain and nausea. # POD #1 s/p laparoscopic cholecystectomy and POD # 4 for ERCP yielded 2 CBD stones after sphincterotomy was made. No stent required as per . No further antibiotic is needed as per surgery will discontinue Tygacil , will discharge patient home. # Obesity with BMI of 32kg weight loss and diet was explained # Hepatomegaly follow up US as an outpatient. DVT px: SCds for now
--- NOTE | 2018-12-29 08:46 | PN ---
Progress Note (short form) - Note Progress Note: Anesthesia postop note 43 y/o F s/p GA for Lap jason POD#1, vss, aaox3, no complaints. NO anesthesia complications.
[2018-12-29] MEDS: TIGECYCLINE 50 MG in DEXTROSE 5%-WATER - 100 ML IVPB SCH (09:13)
--- NOTE | 2018-12-29 09:59 | PN ---
Progress Note, Physician Chief Complaint: abdominal pain History of Present Illness: 43 yo female PMH obesity, gallstones presents with one day history of abdominal pain. She describes intermittent non-radiating 10/10 RUQ pain. Pain lasted approx. stable post operatively. - Current Medication List Current Medications: Active Medications Albuterol Sulfate (Ventolin Hfa Inhaler -) 2 puff IH Q4H PRN PRN Reason: SHORT OF BREATH/WHEEZING Metronidazole (Flagyl 500mg Premixed Ivpb -) 500 mg in 100 mls @ 100 mls/hr IVPB Q8H-IV ANTONIA Last Admin: 12/29/18 09:13 Dose: 100 mls/hr Tigecycline 50 mg/ Dextrose 100 mls @ 100 mls/hr IVPB BID ANTONIA; Protocol Last Admin: 12/29/18 09:13 Dose: 100 mls/hr Lactated Ringer's (Lactated Ringers Solution) 1,000 ml in 1,000 mls @ 150 mls/ hr IV ASDIR ANTONIA Last Admin: 12/29/18 05:24 Dose: 150 mls/hr Morphine Sulfate (Morphine Sulfate) 2 mg IVPUSH Q4H PRN PRN Reason: PAIN LEVEL 7 - 10 Last Admin: 12/28/18 19:50 Dose: 2 mg Ondansetron HCl (Zofran Injection) 4 mg IVPUSH Q6H PRN PRN Reason: NAUSEA Last Admin: 12/28/18 19:50 Dose: 4 mg - Objective Vital Signs: Vital Signs Temperature 99 F 12/29/18 05:53 Pulse Rate 86 12/29/18 05:53 Respiratory Rate 20 12/29/18 05:53 Blood Pressure 134/87 12/29/18 05:53 O2 Sat by Pulse Oximetry (%) 96 12/28/18 22:00 Vital Signs Period Temp Pulse Resp BP Sys/Zhong Pulse Ox Last 24 Hr 98.2 F-99 F 68-86 15-24 120-134/70-87 95-100 Constitutional: Yes: Well Nourished, No Distress, Calm Eyes: Yes: Conjunctiva Clear, EOM Intact HENT: Yes: Atraumatic, Normocephalic Neck: Yes: Supple, Trachea Midline Cardiovascular: Yes: Regular Rate and Rhythm, S1, S2 Respiratory: Yes: Regular, CTA Bilaterally Gastrointestinal: Yes: Normal Bowel Sounds, Soft. No: Tenderness ...Rectal Exam: Yes: Deferred Genitourinary: No: CVA Tenderness - Left, CVA Tenderness - Right Musculoskeletal: No: Muscle Pain, Muscle Weakness Extremities: No: Cool, Cyanosis Edema: No Peripheral Pulses WNL: Yes Peripheral Pulses: Left Radial: 2+, Right Radial: 2+, Left Doralis Pedis: 2+, Right Dorsalis Pedis: 2+, Left Femoral: 2+, Right Femoral: 2+ Integumentary: No: Jaundice, Rash, Skin Tear Wound/Incision: Yes: Clean/Dry, Well Approximated, Dressing Dry and Intact ( dermabond) Neurological: Yes: Alert, Oriented Psychiatric: Yes: Alert, Oriented Labs: CBC, BMP 12/29/18 06:00 12/29/18 06:00 INR, PTT INR 1.35 (0.83-1.09) H 12/28/18 07:00 Problem List - Problems (1) Calculus of gallbladder and bile duct w/cholecystitis w/o obstruction Assessment/Plan: 43yo female with choledocholithiasis, agree with GI paln for ERCP and cholecystetcomy POD#1 s/p Lap Cholecystetcomy, tolertaing diet, Regular diet antibiotics per ID adequate analagesia OOB encourage IV antibiotics Conisder discharge home Code(s): K80.60 - CALCULUS OF GB AND BILE DUCT W CHOLECYST, UNSP, W/O OBST Qualifiers: Cholecystitis acuity: acute and chronic Qualified Code(s): K80.66 - Calculus of gallbladder and bile duct with acute and chronic cholecystitis without obstruction (2) Choledocholithiasis Code(s): K80.50 - CALCULUS OF BILE DUCT W/O CHOLANGITIS OR CHOLECYST W/O OBST (3) Obesity (BMI 30.0-34.9) Code(s): E66.9 - OBESITY, UNSPECIFIED (4) Abdominal pain in female patient Code(s): R10.9 - UNSPECIFIED ABDOMINAL PAIN
--- NOTE | 2018-12-29 10:20 | OP ---
DATE OF OPERATION: 12/28/2018 PREOPERATIVE DIAGNOSIS: Choledocholithiasis. POSTOPERATIVE DIAGNOSIS: Choledocholithiasis. PROCEDURE: Laparoscopic cholecystectomy. ATTENDING SURGEON: Luis Dawkins MD STEAM AND POWER SUPERVISOR: Reed Wolf MD ANESTHESIOLOGIST: Melani Rosen MD ANESTHESIA TYPE: General with local. Local consisted of 0.5% Marcaine, a total of 10 mL given in an area block fashion. ESTIMATED BLOOD LOSS: 2 mL. INTRAVENOUS FLUID: 800 mL. SPECIMEN: Gallbladder. BRIEF FINDINGS: Patient had a distended gallbladder with minimal edema. Critical view was identified. Instrument counts correct postoperatively. INDICATION: Patient is a 43-year-old female who presented with a history of biliary colic, known to have gallstones which were not addressed while she remained in [place]. Upon her coming to [place], she presented to the hospital with recurrent symptoms. She was counseled regarding risks, benefits, and alternatives of surgical cholecystectomy; signed informed consent; was taken for procedure. DESCRIPTION OF PROCEDURE: Patient was brought to the operating room. She was placed in supine position on the operating table. Lower extremity SCDs were placed to compression. Patient was receiving Tygacil and Flagyl IV antibiotics received preoperatively. She was induced with general anesthesia, endotracheally intubated without incident by Anesthesia. At which point, we began first with a formal timeout, identifying the operative site and procedure. Standard prep and drape of the anterior abdominal wall, blocking the right upper quadrant into a surgical field. We began first with a supraumbilical approach using Madelin entry technique. A 15-blade scalpel was used to incise the skin, deepened and widened through subcutaneous tissue with Bovie cautery to the midline rectus fascia which was elevated into the wound and then opened bluntly into the abdomen. After completion, a 12-mm Madelin trocar was introduced in the abdomen. Pneumoperitoneum was established to 15 mmHg. At which point, we began first with exploration of the entry site and the gallbladder. Gallbladder was identified in the right upper quadrant. A subxiphoid 5-mm trocar and 2 additional operative trocars in the right abdomen were placed. Under direct visualization, the gallbladder was grasped and retracted toward the left shoulder. At which point, we began then to retract the infundibulum of the gallbladder laterally towards the right abdomen, and then, the cystic structures were then dissected using a [place] dissector. Upon isolating the cystic duct and cystic artery, they were controlled with 5-mm Endoclips and then transected with an EndoShear. The gallbladder was elevated from the hepatic bed using Bovie cautery, L hook. Patient was stable throughout the dissection. Upon removing the gallbladder in its entirety, it was retrieved from the umbilicus after resiting the camera to the xiphoid position. Upon retrieval of the gallbladder, it was passed off for final pathologic diagnosis. The liver bed was checked for hemostasis and obtained with Bovie cautery. The site was suctioned dry of any bloody effluent, and then, the pneumoperitoneum was relieved. After completing the surgery, all counts were correct. Patient was stable throughout. The umbilical port was ablated with a [id number] at the Madelin entry site, 0 Vicryl, and the skin was closed with 4-0 Monocryl in subcuticular fashion. Skin was cleaned. Sterile dressing and Dermabond were placed. The patient was awoken from general anesthesia, having tolerated the procedure well, stable throughout. MD KYLE Rick/[id number]
--- NOTE | 2018-12-29 11:09 | DS ---
Physical Exam: SUBJECTIVE: Patient seen and examined at bedside. Has passed flatus. OBJECTIVE: Vital Signs Period Temp Pulse Resp BP Sys/Zhong Pulse Ox Last 24 Hr 98.2 F-99 F 68-86 15-24 120-134/70-87 95-100 PHYSICAL EXAM GENERAL: NAD HEAD: Atraumatic/Normocephalic EYES: EOMI Sclera Clear ENT: MMM NECK: Trachea midline, full range of motion, supple. LUNGS: CTAB HEART:RRR nl S1S2 ABDOMEN: Surgical banages in place. Nontender nondistended EXTREMITIES: No CCE NEUROLOGICAL: Cranial nerves II through XII grossly intact. PSYCH: Normal mood, normal affect. SKIN: Warm, dry, normal turgor, no rashes or lesions noted LABS Laboratory Results - last 24 hr 12/28/18 12/29/18 12/29/18 07:00 06:00 06:00 WBC 6.9 RBC 3.37 L Hgb 11.6 Hct 32.5 MCV 96.3 H MCH 34.5 H MCHC 35.8 RDW 13.6 Plt Count 256 MPV 7.3 L Sodium 138 Potassium 3.8 Chloride 108 H Carbon Dioxide 23 Anion Gap 7 L BUN 15 Creatinine 0.7 Creat Clearance w eGFR 92.22 Random Glucose 99 Calcium 8.4 L Phosphorus 3.2 Magnesium 2.4 Total Bilirubin 2.7 H Direct Bilirubin 0.6 H AST 17 ALT 42 Alkaline Phosphatase 81 Total Protein 6.6 Albumin 3.4 Prewarmed Antibody Srcn Negative HOSPITAL COURSE: Date of Admission:12/25/18 Pt is a 43 y/o F admitted for evaluation of RUQ / epigastric abdominal pain and nausea. Pt underwent a CT of her abdomen which revealed cholelithiasis. Ultrasound of her gallbladder revealed multiple nonmobile gallstones in and adjacent to the region of the gallbladder neck without sonographic evidence of acute cholecystitis. Finally, MRCP revealed " cholelithiasis with no evidence of Cholecystitis. Choledocholithiasis with no billiary ductal dilation. 4-5 mm distal CBD stone seen appreciated". Pt's AST and ALT were 136/92 on admission. T Bili was 3.4. Alk Phos remained WNL. Pt was given Levaquin and Metronidazole in the ED however developed an allergic reaction to the Levaquin (rash). Pt was placed on Tygacil and Flagyl in light of pt's PCN allergy and levaquin allergy. GI and Surgery were consulted. Pt underwent an ERCP with Dr Sanchez; 2 stones were removed from the CBD. Furthermore, pt was evaluated by general surgery, Dr Laurent Dawkins who scheduled pt for a lap cholecystectomy. Surgery was successful and pt was discharged following day. Date of Discharge: 12/29/18 Minutes to complete discharge: 35 Discharge Summary Reason For Visit: COMMON BILE DUCT CALCULUS Current Active Problems Abdominal pain in female patient (Acute) Allergy to multiple antibiotics (Acute) Biliary colic (Acute) Calculus of gallbladder and bile duct w/cholecystitis w/o obstruction (Acute) Choledocholithiasis (Acute) Obesity (BMI 30.0-34.9) (Acute) Condition: Improved - Instructions Diet, Activity, Other Instructions: You presented to the hospital due to abdominal pain. You underwent surgery to remove your gallbladder with Dr Dawkins. Postoperative instructions: You had a laparoscopic cholecystectomy on 12/28/[address] Luis Dawkins of [facility]. Activity: Resume your usual activities gradually, but no heavy exertion or lifting more than 10-15 pounds for 1 month. Remove dressings 48 hours after surgery; sticky tapes underneath will fall off by themselves. You may shower daily starting then, just pat the incision areas dry. No bath or swimming until skin incisions have healed. Eat lightly at first, but advance to your usual diet as tolerated. Pain: For pain, you may use and alternate Tylenol (acetaminophen) 1-2 pills and/ or ibuprofen 200 mg (1-3 pills) every 6 hours each as needed; this means that you can take one OR the other at 3-hour intervals. If you are prescribed a Tylenol/narcotic combination for severe pain, use it instead of plain Tylenol as needed and switch back when your pain starts decreasing. Do not take more than 4000mg of acetaminophen in a day. Take medications as prescribed or indicated on the labeling. LOW FAT/LOW sugar/Low carbohydrate diet. Follow-up: Call Dr. Dawkins' office at [phone] to make your postop appointment (Friday in approximately 2 weeks after surgery). Clinic is held in the Diagnostic Center on the first floor of [facility]. Call the office if you have: * increasing pain not responsive to pain medication * fever of 101F or higher * vomiting * unusual or increasing bleeding or drainage from wounds * increasing redness or swelling at wound sites * inability to urinate Also, see your primary medical doctor within 1-2 weeks. Please return to the emergency department immediately if you begin to experience chest pain, shortness of breath, nausea/vomiting, fever, or any other abnormal symptom. Referrals: Sami Sanchez MD [Staff Physician] - 2 Weeks Luis Dawkins MD [Staff Physician] - 2 Weeks Disposition: HOME - Home Medications Comprehensive Discharge Medication List: Ambulatory Orders Albuterol Sulfate Inhaler - [Ventolin HFA Inhaler -] 1 - 2 inh PO Q4H #1 inhaler 06/21/17 This patient is new to me today: No Emergency Visit: Yes ED Registration Date: 12/25/18 Care time: The patient presented to the Emergency Department on the above date and was hospitalized for further evaluation of their emergent condition. Critical Care patient: No - Discharge Referral Referred to [facility] Med P.C.: No
[2018-12-29 11:13] VITALS: BP 136/87; PULSE 91; TEMP 98
--- NOTE | 2018-12-29 17:02 | PATH ---
Surgical Pathology Report Patient Name: ROXANNE FONSECA Med. Rec. #: [id number] /Age/Gender: 1975 (Age: 43) / F Account: [id number] Location: [address] [place] [address] Taken: 12/28/2018 Received: 12/28/2018 Reported: 12/29/2018 Physicians: Dong Rick M.D. Specimen(s) Received GALLBLADDER Clinical History Common bile duct calculus Final Diagnosis GALLBLADDER, LAPAROSCOPIC CHOLECYSTECTOMY: CHRONIC CHOLECYSTITIS, CHOLESTEROLOSIS, AND CHOLELITHIASIS. Electronically Signed Theodora Rocha M.D. Gross Description Received in formalin, labeled "gallbladder," is an 8.0 x 3.5 x 3.3 cm. gallbladder with a 0.2 cm. in length portion of cystic duct attached. The outer surface is rose-pink and varies from smooth to shaggy. The lumen contains green, tenacious bile as well as 3 brown, irregular choleliths ranging from 0.4 and 0.7 cm in greatest dimension. The mucosa is dark green and velvety. The wall of the gallbladder measures 0.1 cm. in thickness. Crime Scene Photographer sections are submitted in one cassette. /12/28/201812/28/2018
== END 2018-12-29 14:45 | disposition home or self-care (01) | DRG 263 ==
LOC: JER 03:02 → JERBED 05:41 → J6S 19:29
PROVIDERS: ADMIT Internal Medicine; ATTEND Internal Medicine
PROC: 0FC98ZZ Extirpation of Matter from Common Bile Duct, Via Natural or Artificial Opening Endoscopic (ICD-10-PCS; 2018-12-25)
PROC: 0FT44ZZ Resection of Gallbladder, Percutaneous Endoscopic Approach (ICD-10-PCS; principal; 2018-12-28 10:00)
DX: K80.66 Calculus of gallbladder and bile duct with acute and chronic cholecystitis without obstruction (principal); R16.0 Hepatomegaly, not elsewhere classified; E66.9 Obesity, unspecified; Z88.0 Allergy status to penicillin; Z68.32 Body mass index [BMI] 32.0-32.9, adult; R74.0 Nonspecific elevation of levels of transaminase and lactic acid dehydrogenase [LDH]; Z88.1 Allergy status to other antibiotic agents
CPT/HCPCS: 36415; 74160-TC; 74181-TC; 76705-TC; 80048; 80053; 80076; 81003; 82150; 82248; 83690; 83735; 84100; 84703; 85025; 85027; 85610; 85730; 86140; 86850; 86870; 86900; 86901; 86902; 87040; 87086; 88304-TC; 93005; 93010; 94760; 99284-25; J3243; J7030